=== PATIENT | male | born 1980 | race Native Hawaiian/Other Pacific Islander ===

== ENCOUNTER → 2020-01-07 | Outpatient (CLI) | payer BC ==
--- NOTE | 2020-01-07 22:15 | MR ---
EXAMINATION TYPE: MR brain wo con DATE OF EXAM: 01/07/2020 COMPARISON: NONE HISTORY: MARILY EXT WEAKNESS AND NUMBNESS, HX OF CHIARI TECHNIQUE: Multiplanar, multisequence imaging of the brain and brainstem is performed without IV cont rast. FINDINGS: Diffusion weighted images demonstrate no evidence of a recent infarct or other diffusion abnormality. There is no extraaxial fluid collection or significant white matter signal abnormality. The ventricu lar system and cisternal spaces are normal in size and appearance. The brain volume is age appropria te. Midline structures demonstrate normal morphology. The craniocervical junction appears within normal limits. Normal vascular flow voids are present. A few tiny mucous retention cysts and/or polyps in th e inferior aspect bilateral maxillary sinuses. Remainder of visualized sinuses are clear. Some artifa ct degradation at level of right globe. IMPRESSION: No recent infarct or significant white matter changes. No greater than 5 mm low-lying cer ebellar tonsils or Chiari type I malformation.
== END | disposition home or self-care (01) ==
LOC: RADMRIMAIN 19:10
PROVIDERS: ATTEND Nurse Practitioner Family
DX: G93.5 Compression of brain (principal)
CPT/HCPCS: 70551

== ENCOUNTER 2022-08-23 12:06 | Day surgery (SDC) | payer BC ==
[~2022-08-23 12:06] MED LIST: LACTATED RINGERS 1,000 ML IV SCH; LIDOCAINE 1% (10MG/ML) FOR IV START INTRADERMA PRN
[2022-08-23 12:56] VITALS: TEMP 97
[2022-08-23] MEDS ORDERED: LIDOCAINE 2% INJ 20 MG/ML (2 ML VIAL) ONE (13:39)
[2022-08-23] MEDS ORDERED: PROPOFOL 10 MG/ML 20 ML VIAL IV ONE (13:39)
[2022-08-23] MEDS ORDERED: fentaNYL (PF) 50 MCG/ML 2 ML AMP ONE (13:39)
[2022-08-23] MEDS ORDERED: MIDAZOLAM 2 MG/2 ML VIAL ONE (13:39)
--- NOTE | 2022-08-23 13:51 | P.GSHP ---
History of Present Illness H&P Date: 08/23/22 Chief Complaint: GERD Is a 42-year-old male with history of GERD. Patient presents today for EGD. Past Medical History Additional Past Medical History / Comment(s): Arnold-Chiari malformation; nephrolithiasis History of Any Multi-Drug Resistant Organisms: None Reported Past Surgical History: Cholecystectomy Past Psychological History: No Psychological Hx Reported Past Alcohol Use History: None Reported Past Drug Use History: None Reported - Past Family History Father Family Medical History: Cancer Additional Family Medical History / Comment(s): kidney cancer, emphysema Mother Family Medical History: Hypertension Additional Family Medical History / Comment(s): kidney issues, gallbladder issues Medications and Allergies Home Medications Medication Instructions Recorded Confirmed Type Acetaminophen Tab [Tylenol] 1,000 mg PO Q8H PRN 03/09/16 03/09/16 History Albuterol Sulfate [Proventil Hfa] 2 puff INHALATION Q6HR PRN #1 03/11/16 Rx inhaler Esomeprazole Magnesium [NexIUM] 40 mg PO DAILY 08/23/22 08/23/22 History Fluticasone Nasal [place] [Flonase 2 puff EA NOSTRIL DAILY 08/23/22 08/23/22 History Nasal [place]] buPROPion HCL [Wellbutrin SR] 200 mg PO DAILY 08/23/22 08/23/22 History Allergies Allergy/AdvReac Type Severity Reaction Status Date / Time No Known Allergies Allergy Verified 08/23/22 12:50 Surgical - Exam Vital Signs Temp Pulse Resp BP Pulse Ox 97.0 F L 85 18 134/96 94 L 08/23/22 12:55 08/23/22 12:55 08/23/22 12:55 08/23/22 12:55 08/23/22 12:55 - General well developed, well nourished, no distress - Eyes PERRL - ENT normal pinna - Neck no masses - Respiratory normal expansion - Cardiovascular Rhythm: regular - Abdomen Abdomen: soft, non tender Assessment and Plan Assessment: GERD, we'll perform EGD.
--- NOTE | 2022-08-23 13:53 | P.OP ---
Date of Procedure: 08/23/22 Preoperative Diagnosis: GERD Postoperative Diagnosis: Antral gastritis Hiatal hernia Esophagitis Procedure(s) Performed: EGD Anesthesia: MAC Surgeon: Eric Donato Pathology: other (Antrum, esophagus) Condition: stable Disposition: PACU Description of Procedure: Patient's placed on the endoscopy table in the lateral position. He received IV sedation. The gastroscope placed oropharynx passed in the esophagus into the stomach. Scope was then placed through the pylorus. The first and second porti on of duodenum appeared normal. Scope was then brought back the antrum this was mildly inflamed. A biopsies performed. Scope was unretroflexed the patient had a moderate size sliding hiatal hernia. The GE junction was at 38 cm. The distal esophagus appeared inflamed. A biopsies performed. The proximal esophagus appeared normal. Scope withdrawn for patient.
[2022-08-23 14:03] VITALS: PULSE 93
[2022-08-23 14:24] VITALS: BP 111/75; RESP 18
== END 2022-08-23 14:49 ==
LOC: ORWHC2ENDO 12:06
PROVIDERS: ATTEND Surgery
DX: K29.50 Unspecified chronic gastritis without bleeding (principal); K21.00 Gastro-esophageal reflux disease with esophagitis, without bleeding; K44.9 Diaphragmatic hernia without obstruction or gangrene; Z87.442 Personal history of urinary calculi; Z80.51 Family history of malignant neoplasm of kidney; Z82.49 Family history of ischemic heart disease and other diseases of the circulatory system; Z79.899 Other long term (current) drug therapy
CPT/HCPCS: 88305; 43239; J2250; J3010; J2704; J2001

== ENCOUNTER → 2022-09-02 | Outpatient (CLI) | payer BC ==
[2022-09-02 23:16] LABS: HCT 48.7 % (39.6-50.0); HGB 15.8 g/dL (13.0-17.0); MCH 30.3 pg (27.0-32.0); MCHC 32.4 g/dL (32.0-37.0); MCV 93.3 fL (80.0-97.0); Mean Platelet Volume 9.6 fL (9.5-12.2); NRBC Per 100 WBC 0 /100 WBCS (0.0-0.0); Platelet Count 345 X 10*3/uL (140-440); RBC 5.22 X 10*6/uL (4.40-5.60)
[2022-09-03 01:54] LABS: Basophils # (A) 0.11 X 10*3/uL (0.00-0.10); Basophils % (A) 0.7 %; Eosinophils # (A) 0.31 X 10*3/uL (0.04-0.35); Eosinophils % (A) 1.9 %; Immature Grans, Automated 0.8 %; Lymphocytes # (A) 3.18 X 10*3/uL (0.90-5.00); Lymphocytes % (A) 19.5 %; Monocytes # (A) 1.56 X 10*3/uL (0.20-1.00); Monocytes % (A) 9.6 %; Neutrophils # (A) 11.01 X 10*3/uL (1.80-7.70); Neutrophils % (A) 67.5 %
[2022-09-03 01:55] LABS: RBC Morphology NORMAL
== END | disposition home or self-care (01) ==
LOC: LABPAT 14:35
PROVIDERS: ATTEND Surgery
DX: Z01.812 Encounter for preprocedural laboratory examination (principal); K21.00 Gastro-esophageal reflux disease with esophagitis, without bleeding
CPT/HCPCS: 85025

== ENCOUNTER 2022-09-17 07:30 | Inpatient (IN) | payer BC ==
[2022-09-22] MEDS ORDERED: HEPARIN SODIUM,PORCINE/PF 5,000 UNIT/0.5 ML SYRINGE SQ PRN (05:00)
[2022-09-22] MEDS ORDERED: ACETAMINOPHEN TAB 500 MG TAB PO PRN (05:00)
[2022-09-22] MEDS ORDERED: LIDOCAINE 1% (10MG/ML) FOR IV START INTRADERMA PRN (08:09)
[2022-09-22] MEDS ORDERED: DEXAMETHASONE SOD PHOSPHATE 4 MG/ML 1 ML VIAL IV ONE (08:09)
[2022-09-22] MEDS ORDERED: ONDANSETRON 4 MG/2 ML VIAL IVP ONE (08:09)
[2022-09-22] MEDS ORDERED: MIDAZOLAM 2 MG/2 ML VIAL IV PRN (08:09)
[2022-09-22] MEDS ORDERED: LACTATED RINGERS 1,000 ML IV ONE (10:00)
[2022-09-22] MEDS ORDERED: HEPARIN SODIUM,PORCINE 5,000 UNIT/ML 1 ML VIAL SQ ONE (10:23)
[2022-09-22] MEDS ORDERED: MIDAZOLAM 2 MG/2 ML VIAL IVP ONE (10:29)
--- NOTE | 2022-09-22 10:53 | P.GSHP ---
History of Present Illness H&P Date: 09/22/22 Chief Complaint: GERD Is a 42-year-old male with history of GERD. MThe patient has had long-standing problems with reflux esophagitis. The patient underwent recent EGD is found have evidence of esophagitis. Patient has been well informed on the procedure of laparoscopic Tricia fundoplication. The patient is aware the risk of the conversion to the open procedure, risk of injury to the stomach, liver and spleen. The patient is also a risk of recurrent GERD and dysphagia symptoms. The patient understands there is a postoperative diet of full liquids for 2 weeks after surgery. Past Medical History Past Medical History: COPD, GERD/Reflux Additional Past Medical History / Comment(s): Arnold-Chiari malformation; nephrolithiasis, DDD with back pain., eczema left thigh., hiatal hernia, pt states wbc's always elevated. History of Any Multi-Drug Resistant Organisms: None Reported Past Surgical History: Cholecystectomy Additional Past Surgical History / Comment(s): surgery as for " no soft spot"., egd Past Anesthesia/Blood Transfusion Reactions: Previous Problems w/ Anesthesia, Motion Sickness Additional Past Anesthesia/Blood Transfusion Reaction / Comment(s): difficulty waking up after colonoscopy. Past Psychological History: No Psychological Hx Reported Smoking Status: Current every day smoker Past Alcohol Use History: None Reported Additional Past Alcohol Use History / Comment(s): smokes 1 ppd, started smoking 18 yrs old Past Drug Use History: None Reported - Past Family History Father Family Medical History: Cancer Additional Family Medical History / Comment(s): kidney cancer, emphysema Mother Family Medical History: Hypertension Additional Family Medical History / Comment(s): kidney issues, gallbladder issues Medications and Allergies Home Medications Medication Instructions Recorded Confirmed Type Esomeprazole Magnesium [NexIUM] 40 mg PO DAILY 08/23/22 09/22/22 History Fluticasone Nasal [place] [Flonase 2 puff EA NOSTRIL DAILY 08/23/22 09/22/22 History Nasal [place]] buPROPion HCL [Wellbutrin SR] 200 mg PO DAILY 08/23/22 09/22/22 History Doxylamine Succinate [Unisom] 25 mg PO HS PRN 09/20/22 09/22/22 History Voltaren Gel 1 applicate TOPICAL DIRECTED PRN 09/20/22 09/22/22 History Zyrtec 1 dose PO DAILY 09/20/22 09/22/22 History tiZANidine HCL [Zanaflex] 4 mg PO TID PRN 09/20/22 09/22/22 History Allergies Allergy/AdvReac Type Severity Reaction Status Date / Time trazodone AdvReac Unknown nausea, Verified 09/22/22 09:52 felt like he was drunk Surgical - Exam Vital Signs Temp Pulse Resp BP Pulse Ox 97.7 F 76 16 125/86 98 09/22/22 10:00 09/22/22 10:00 09/22/22 10:00 09/22/22 10:00 09/22/22 10:00 - General well developed, well nourished, no distress - Eyes PERRL - ENT normal pinna - Neck no masses - Respiratory normal expansion - Cardiovascular Rhythm: regular - Abdomen Abdomen: soft, non tender Assessment and Plan Assessment: GERD. We'll perform laparoscopic Tricia fundal plication.
[2022-09-22] MEDS ORDERED: MIDAZOLAM 2 MG/2 ML VIAL ONE (11:11)
[2022-09-22] MEDS ORDERED: LIDOCAINE 4% LTA KIT (4 ML) TOPICAL ONE (11:11)
[2022-09-22] MEDS ORDERED: NEOSTIGMINE 1 MG/ML 10 ML VIAL ONE (11:11)
[2022-09-22] MEDS ORDERED: PHENYLEPHRINE-0.9% NACL SYG 1,000 MCG/10 ML SYRINGE ONE (11:11)
[2022-09-22] MEDS ORDERED: KETOROLAC 15 MG/ML 1 ML VIAL ONE (11:11)
[2022-09-22] MEDS ORDERED: PROPOFOL 10 MG/ML 20 ML VIAL IV ONE (11:11)
[2022-09-22] MEDS ORDERED: GLYCOPYRROLATE 0.2 MG/ML 2 ML VIAL ONE (11:11)
[2022-09-22] MEDS ORDERED: SUCCINYLCHOLINE CHLORIDE 200 MG/10 ML VIAL IV ONE (11:11)
[2022-09-22] MEDS ORDERED: LIDOCAINE 2% INJ 20 MG/ML (2 ML VIAL) ONE (11:11)
[2022-09-22] MEDS ORDERED: ROCURONIUM 10 MG/ML (5 ML VIAL) IV ONE (11:11)
[2022-09-22] MEDS ORDERED: fentaNYL (PF) 50 MCG/ML 2 ML AMP ONE (11:11)
[2022-09-22] MEDS ORDERED: BUPIVACAIN-EPI 0.25%-1:200,000 30 ML VIAL SQ ONE (11:33)
[2022-09-22] MEDS ORDERED: ONDANSETRON 4 MG/2 ML VIAL IVP PRN (11:53)
[2022-09-22] MEDS: HYDROmorphone 0.5 MG/0.5 ML SYRINGE IVP PRN ×2 (13:00→13:10)
[2022-09-22] MEDS: LACTATED RINGERS 1,000 ML IV SCH ×2 (13:12→16:00)
[2022-09-22] MEDS ORDERED: hydrALAZINE HCL 20 MG/ML 1 ML VIAL IVP ONE (13:49)
[2022-09-22] MEDS ORDERED: LABETALOL 5 MG/ML VIAL MDV IVP ONE (14:05)
[2022-09-22 15:43] VITALS: BMI 28.0
--- NOTE | 2022-09-22 15:53 | P.OP ---
Date of Procedure: 09/22/22 Preoperative Diagnosis: GERD Postoperative Diagnosis: GERD Procedure(s) Performed: Laparoscopic Rticia fundoplication Anesthesia: JESSICA Surgeon: Eric Donato Estimated Blood Loss (ml): 5 Pathology: none sent Condition: stable Disposition: PACU Description of Procedure: HarThe patient was placed on the operating table in the supine position. The patient received general anesthesia. And was placed in dorsal lithotomy position. The patient was prepped and draped in the usual sterile fashion. The skin incision sites were anesthetized with 1% local Xylocaine. The skin was incised in the left periumbilical area and then using a blade less 5 mm trocar under direct visualization panel cavity was entered. After adequate insufflation the laparoscope was then placed into the peritoneal cavity. Next a 5 mm trochars placed in the right epigastric position. Another 5 millimeter trocar the right lateral position. Another 5 millimeter trocar in the left lateral position a 5 mm trocar is placed in the left epigastric position. And then the initial 5 mm trocar was exchanged for a 10 mm trocar. The left lateral lobe liver was retracted. The hernia was seen. The crural defect was then dissected using the Harmonic scissors device. A 360 crural dissection was performed the esophagus stomach was reduced back into the peritoneal Cavity. The crural defect was then closed using 2-0 Ethibond suture. Next the fundus of the stomach was mobilized using the [place]imble scissors device. and then a 58- [place] bougie dilator was placed oropharynx passed into the esophagus and stomach the fundal plication wrap was then performed by grasping the fundus post eriorly and bringing it around the esophagus and stomach fundoplication was then performed using 2-0 Ethibond suture. Care was taken that the fundal location rested over top of the intra-abdominal esophagus. There was no injury seen to the stomach or esophagus. The dilator was then withdrawn. The abdomen was irrigated there is no bleeding seen. The trochars were then withdrawn and then skin incision sites were closed using 3-0 Monocryl suture Steri-Strips are applied. Patient thought procedure well and sent to recovery room in stable condition.
[2022-09-22] MEDS: D5-0.45% NACL WITH KCL 20MEQ/L 1,000 ML IV SCH (16:30)
[2022-09-22] MEDS: HYDROmorphone 1 MG/ML 1 ML SYRINGE IVP PRN (18:21)
[2022-09-23] MEDS: HYDROmorphone 1 MG/ML 1 ML SYRINGE IVP PRN ×3 (00:21→10:56)
[2022-09-23] MEDS: D5-0.45% NACL WITH KCL 20MEQ/L 1,000 ML IV SCH ×3 (02:01→11:00)
[2022-09-23] MEDS ORDERED: HYDROcodone/APAP 5-325MG 1 EACH TAB PO PRN (08:01)
[2022-09-23] MEDS ORDERED: ENOXAPARIN 40 MG/0.4 ML SYRINGE SQ SCH (09:00)
[2022-09-23] MEDS ORDERED: NON FORMULARY DRUG (Doxylamine Succinate [Unisom] 25 MG Tablet) PO PRN (12:53)
[2022-09-23] MEDS ORDERED: tiZANidine 4 MG TAB PO PRN (12:53)
[2022-09-23] MEDS ORDERED: DICLOFENAC SODIUM GEL 100 GM TUBE TOPICAL PRN (12:53)
[2022-09-23] MEDS ORDERED: FLUTICASONE 50MCG/SPRAY NASAL 16GM EA NOSTRIL SCH (13:00)
[2022-09-23] MEDS ORDERED: buPROPion SR 100 MG TABLET.ER PO SCH (13:00)
[2022-09-23 13:19] LABS: Basophils # (A) 0.1 k/uL (0-0.2); Basophils % (A) 0 %; Eosinophils # (A) 0.1 k/uL (0-0.7); Eosinophils % (A) 1 %; HCT 47.5 % (39.0-53.0); Lymphocytes # (A) 3.4 k/uL (1.0-4.8); Lymphocytes % (A) 16 %; MCH 31.8 pg (25.0-35.0); MCHC 33.6 g/dL (31.0-37.0); MCV 94.5 fL (80.0-100.0); Monocytes # (A) 1.3 k/uL (0-1.0); Monocytes % (A) 6 %; Neutrophils % (A) 76 %; Platelet Count 318 k/uL (150-450); RBC 5.03 m/uL (4.30-5.90); RDW 12.8 % (11.5-15.5); WBC 21.1 k/uL (3.8-10.6)
[2022-09-23] MEDS ORDERED: SIMETHICONE 40 MG/0.6 ML DROPS 2,000 MG/30 ML BOTTLE PO SCH (13:30)
[2022-09-23 13:40] LABS: African American GFR (CKD) >90 (>60 ml/min/1.73 sqM); Anion Gap 10 mmol/L; Blood Urea Nitrogen 9 mg/dL (9-20); Calcium 8.8 mg/dL (8.4-10.2); Carbon Dioxide 24 mmol/L (22-30); Chloride 104 mmol/L (98-107); Glucose 130 mg/dL (74-99); Non-African American GFR(CKD) >90 (>60 ml/min/1.73 sqM); Potassium 4.2 mmol/L (3.5-5.1); Sodium 138 mmol/L (137-145)
--- NOTE | 2022-09-23 13:47 | P.DS ---
Providers Date of admission: 09/22/22 09:23 Expected date of discharge: 09/23/22 Attending physician: Eric Donato Consults: 09/22/22 11:53 Consult Physician Routine Consulting Provider: Rui Gutiérrez Consult Reason/Comments: Medical management Do you want consulting provider notified?: Yes Primary care physician: Stated None Hospital Course: Discharge diagnosis 1. Laparoscopic Tricia fundoplication 2. Leukocytosis likely reactive due to steroids Hospital course This is a 42-year-old male with a known history of GERD. He is status post laparoscopic Tricia fundoplication. Patient's pain is controlled. He is tolerating diet. He has been up and ambulating he is afebrile. He is stable for discharge. Please refer to chart for any further details. Recommend repeating CBC in 3 days regarding leukocytosis. Physician Baling Machine Tender note has been reviewed by physician. Signing provider agrees with the documented findings, assessment, and plan of care. Patient Condition at Discharge: Stable Plan - Discharge Summary Discharge Rx Participant: Yes New Discharge Prescriptions: New Simethicone 40 mg/0.6 ml Drops [Mylicon Drops] 80 mg PO PCHS ml HYDROcodone/APAP 5-325MG [[place] 5-325] 1 tab PO Q6HR PRN 3 Days #12 tab PRN Reason: Pain Continue buPROPion HCL [Wellbutrin SR] 200 mg PO DAILY Fluticasone Nasal [place] [Flonase Nasal [place]] 2 puff EA NOSTRIL DAILY tiZANidine HCL [Zanaflex] 4 mg PO TID PRN PRN Reason: Muscle Spasm Zyrtec 1 dose PO DAILY Esomeprazole Magnesium [NexIUM] 40 mg PO DAILY Voltaren Gel 1 applicate TOPICAL DIRECTED PRN PRN Reason: Pain Doxylamine Succinate [Unisom] 25 mg PO HS PRN PRN Reason: Insomnia Discharge Medication List Esomeprazole Magnesium [NexIUM] 40 mg PO DAILY 08/23/22 [History] Fluticasone Nasal [place] [Flonase Nasal [place]] 2 puff EA NOSTRIL DAILY 08/23/22 [History] buPROPion HCL [Wellbutrin SR] 200 mg PO DAILY 08/23/22 [History] Doxylamine Succinate [Unisom] 25 mg PO HS PRN 09/20/22 [History] Voltaren Gel 1 applicate TOPICAL DIRECTED PRN 09/20/22 [History] Zyrtec 1 dose PO DAILY 09/20/22 [History] tiZANidine HCL [Zanaflex] 4 mg PO TID PRN 09/20/22 [History] HYDROcodone/APAP 5-325MG [[place] 5-325] 1 tab PO Q6HR PRN 3 Days #12 tab 09/23/22 [Rx] Simethicone 40 mg/0.6 ml Drops [Mylicon Drops] 80 mg PO PCHS ml 09/23/22 [Rx] Follow up Appointment(s)/Referral(s): Eric Donato MD [STAFF PHYSICIAN] - 1 Week Activity/Diet/Wound Care/Special Instructions: No driving while taking [place] No lifting over 10 pounds Shower daily. No soaking or tub baths for 2 weeks Very light activity until you are reevaluated at your follow up appointment with your surgeon No straws or carbonated beverages Continue a soft diet until seen by surgeon Repeat CBC in 3 days with PCP Discharge Disposition: HOME SELF-CARE
[2022-09-23 14:34] VITALS: BP 143/95; PULSE 101; RESP 19; TEMP 98
--- NOTE | 2022-09-23 14:47 | P.CONS ---
History of Present Illness - Reason for Consult Consult date: 09/23/22 medical management postop Tricia fundoplication - History of Present Illness This is a 42-year-old male who was recently admitted under Gen. surgery services for Tricia fundoplication postop day #1. Patient reports he follows with Dr. Mccurdy outpatient although has mostly been only following with surgery over the last few months. Patient with a past medical history of gastroesophageal reflux disease, COPD, most recent EGD showing esophagitis. On exam this morning patient having some increasing abdominal pain and belching and denies passing gas or having bowel movements. Patient reports he is tolerating clears although not much of an appetite. Home medications have been reviewed and resumed as appropriate. Patient encouraged to increase activity as tolerated and have ordered incentive spirometer and encouraged and instructed the patient to continue using at least 10 times every hour while awake. Presurgical clearance showed an elevated WBC of 16 and after surgery showing 21 although patient is afebrile denies shortness of breath denies dysuria and does not appear to be clinically showing any signs of infection. After reviewing past medical records patient does have a history of chronic white blood count elevation. BMP reviewed and within normal limits. Review Of Systems: Constitutional: No fever, no chills, no night sweats. No weight change. No weakness, fatigue or lethargy. No daytime sleepiness. EENT: No headache. No blurred vision or double vision, no loss of vision. No loss of Hearing, no ringing in the ears, no dizziness. No nasal drainage or congestion. No epistaxis. No sore throat. Lungs: No shortness of breath, cough, no sputum production. No wheezing. Cardiovascular: No chest pain, no lower extremity edema. No palpitations. No paroxysmal nocturnal dyspnea. No orthopnea. No lightheadedness or dizziness. No syncopal episodes. Abdominal: Reports abdominal pain. Reports occasional nausea, no vomiting. No diarrhea. No constipation. No bloody or tarry stools.. No loss of appetite. Reports no bowel movement or passing gas, reports belching Genitourinary: No dysuria, increased frequency, urgency. No urinary retention. Musculoskeletal: No myalgias. No muscle weakness, no gait dysfunction, no frequent falls. No back pain. No neck pain. Integumentary: No wounds, no lesions. No rash or pruritus. No unusual bruising. No change in hair or nails. Neurologic: No aphasia. No facial droop. No change in mentation. No head injury. No headache. No paralysis. No paresthesia. Psychiatric: No depression. No anxiety. No mood swings. Endocrine: No abnormal blood sugars. No weight change. No excessive sweating or thirst. No cold intolerance. PHYSICAL EXAMINATION: GENERAL: The patient is alert and oriented x4, Well developed, well nourished. HEENT: Pupils are round and equally reacting to light. EOMI. no scleral icterus. No conjunctival pallor. Normocephalic, atraumatic. No pharyngeal erythema. No thyromegaly. CARDIOVASCULAR: S1 and S2 muffled PULMONARY: diminished breath sounds bilaterally with no wheezing or rhonchi noted. ABDOMEN: soft. Nontender on exam. obese. non-distended, normoactive bowel sounds. No palpable organomegaly. MUSCULOSKELETAL: No joint swelling or deformity. EXTREMITIES: No cyanosis, clubbing, or pedal edema. NEUROLOGICAL: Gross neurological examination did not reveal any focal deficits. SKIN: No rashes. Assessment: Status post laparoscopic Niesen fundoplication Extensive history of gastroesophageal reflux disease Recent EGD showing esophagitis Leukocytosis, likely reactive due to steroids Continued ongoing nicotine dependence History of COPD, not an exacerbation GI prophylaxis DVT prophylaxis Full code Plan: Recommend to continue with current medications and management per general [facility] services. Patient is post Niesen fundoplication postop day #1. Patient having some postoperative gas pain and having belching with no passing gas or bowel movements. Patient is urinating with no difficulties. Patient is tolerating clear liquids and will continue on this per surgical recommendations with close outpatient follow-up. Patient reports he follows with Dr. Mccurdy outpatient but has mostly been seeing surgery for these complications. All medications were reviewed and resumed and patient encouraged to follow-up with primary care and surgery outpatient. Patient reports he is being discharged later today. Incentive spirometer ordered and patient reports he has one at home and encouraged and instructed the patient to continue using at least 10 times every hour while awake. Recommend follow-up labs in the next few days as patient with chronic leukocytosis and following with his primary care provider to discuss this. We will continue to follow with general surgery during hospitalization. Thank you kindly for this consultation. The impression and plan of care has been dictated by Lisa Kaufman, nurse practitioner as directed. Dr. Marla MD I have performed a history and examination and MDM of this patient, discussed the same with the dictator, and agree with the dictator's assessment and plan as written ,documented as a scribe. Based on total visit time, I have performed more than 50% of the visit. Any additional findings or plans will be noted. Past Medical History Past Medical History: COPD, GERD/Reflux Additional Past Medical History / Comment(s): Arnold-Chiari malformation; nephrolithiasis, DDD with back pain., eczema left thigh., hiatal hernia, pt s tates wbc's always elevated. History of Any Multi-Drug Resistant Organisms: None Reported Past Surgical History: Cholecystectomy Additional Past Surgical History / Comment(s): surgery as for " no soft spot"., egd Past Anesthesia/Blood Transfusion Reactions: Previous Problems w/ Anesthesia, Mo tion Sickness Additional Past Anesthesia/Blood Transfusion Reaction / Comm: difficulty waking up after colonoscopy. Past Psychological History: No Psychological Hx Reported Smoking Status: Current every day smoker Past Alcohol Use History: None Reported Additional Past Alcohol Use History / Comment(s): smokes 1 ppd, started smoking 18 yrs old Past Drug Use History: None Reported - Past Family History Father Family Medical History: Cancer Additional Family Medical History / Comment(s): kidney cancer, emphysema Mother Family Medical History: Hypertension Additional Family Medical History / Comment(s): kidney issues, gallbladder issues Medications and Allergies Home Medications Medication Instructions Recorded Confirmed Type Esomeprazole Magnesium [NexIUM] 40 mg PO DAILY 08/23/22 09/22/22 History Fluticasone Nasal [place] [Flonase 2 puff EA NOSTRIL DAILY 08/23/22 09/22/22 History Nasal [place]] buPROPion HCL [Wellbutrin SR] 200 mg PO DAILY 08/23/22 09/22/22 History Doxylamine Succinate [Unisom] 25 mg PO HS PRN 09/20/22 09/22/22 History Voltaren Gel 1 applicate TOPICAL DIRECTED PRN 09/20/22 09/22/22 History Zyrtec 1 dose PO DAILY 09/20/22 09/22/22 History tiZANidine HCL [Zanaflex] 4 mg PO TID PRN 09/20/22 09/22/22 History HYDROcodone/APAP 5-325MG [[place] 1 tab PO Q6HR PRN 3 Days #12 tab 09/23/22 Rx 5-325] Simethicone 40 mg/0.6 ml Drops 80 mg PO PCHS ml 09/23/22 Rx [Mylicon Drops] Allergies Allergy/AdvReac Type Severity Reaction Status Date / Time trazodone AdvReac Unknown nausea, Verified 09/22/22 09:52 felt like he was drunk Physical Exam Vitals: Vital Signs Temp Pulse Pulse Pulse Resp BP BP 09/23/22 08:00 97.8 F 89 18 142/93 09/23/22 02:00 97.7 F 101 H 17 125/86 09/22/22 20:00 97.8 F 99 17 125/91 09/22/22 15:06 97.8 F 101 H 18 134/95 09/22/22 14:21 90 18 130/99 09/22/22 14:00 97 18 172/108 09/22/22 13:40 89 18 154/119 09/22/22 13:25 103 H 16 156/101 09/22/22 13:10 95 16 156/102 09/22/22 12:55 85 16 163/106 09/22/22 12:40 97 16 165/94 09/22/22 12:25 103 H 16 155/82 09/22/22 12:13 99 16 145/81 09/22/22 10:00 97.7 F 76 16 125/86 Pulse Ox 09/23/22 08:00 91 L 09/23/22 02:00 91 L 09/22/22 20:00 93 L 09/22/22 15:06 94 L 09/22/22 14:21 100 09/22/22 14:00 96 09/22/22 13:40 95 09/22/22 13:25 93 L 09/22/22 13:10 97 09/22/22 12:55 98 09/22/22 12:40 100 09/22/22 12:25 99 09/22/22 12:13 99 09/22/22 10:00 98 Intake and Output 09/22/22 09/23/22 09/23/22 22:59 06:59 14:59 Other: # Voids 2 # Bowel Movements 2 Weight 78.9 kg Results CBC & Chem 7: 09/23/22 12:20 09/23/22 12:20
[2022-09-24] MEDS ORDERED: PANTOPRAZOLE 40 MG TABLET PO SCH (07:30)
[2022-09-24] MEDS ORDERED: LORATADINE 10 MG TAB PO SCH (09:00)
== END 2022-09-23 15:09 | disposition home or self-care (01) | DRG 328 ==
LOC: EDSTATUS 09-22 08:30 → 2ORMAIN 09-22 09:23 → 4SSUR 09-22 14:02
PROVIDERS: ADMIT Surgery; ATTEND Surgery
PROC: 0DV44ZZ Restriction of Esophagogastric Junction, Percutaneous Endoscopic Approach (ICD-10-PCS; principal; 2022-09-22 11:05)
DX: K21.00 Gastro-esophageal reflux disease with esophagitis, without bleeding (principal); D72.829 Elevated white blood cell count, unspecified; F17.210 Nicotine dependence, cigarettes, uncomplicated; J44.9 Chronic obstructive pulmonary disease, unspecified; K21.9 Gastro-esophageal reflux disease without esophagitis; K44.9 Diaphragmatic hernia without obstruction or gangrene; Q07.00 Arnold-Chiari syndrome without spina bifida or hydrocephalus; M54.9 Dorsalgia, unspecified; T38.0X5A Adverse effect of glucocorticoids and synthetic analogues, initial encounter; Z79.899 Other long term (current) drug therapy; Z80.51 Family history of malignant neoplasm of kidney; Z82.49 Family history of ischemic heart disease and other diseases of the circulatory system; Z82.5 Family history of asthma and other chronic lower respiratory diseases; Z87.442 Personal history of urinary calculi; Z88.6 Allergy status to analgesic agent
CPT/HCPCS: 80048; 85025

== ENCOUNTER → 2022-11-22 | Outpatient (CLI) | payer BC ==
[2022-11-22 13:14] VITALS: BP 134/85; PULSE 94; RESP 18; TEMP 98.1
--- NOTE | 2022-11-22 15:24 | P.PAINPG ---
PQRS Measure Charge Sheet Comment: HISTORY OF PRESENT ILLNESS: 42 yr old male w female gastroenterologist at side as a referral from Sylvia Leroy [facility] presents today w severe and chronic LBP x 7 mo secondary to lumbar stenosis, DDD, spondylosis and facet arthropathy without myelopathy for evaluation. Pt states pain level is at 8 /10 in intensity, constant, localized in the lower lumbar spine, burning, dull, throbbing in character w shooting pain towards the BLEs and feet. Pain is provoked by standing for periods of 15 min or more. Pain is alleviated by PT in May 2022 but PT ended treatment w PCP, massage gun use, heat, medications (Aleve, Flexeril, Advil), topicals, repositioning and rest. PMH: COPD, GERD, Arnold-Chiari malformation, MDD PSH: Nephrolithiasis, Lumbar DDD, Hiatal Hernia, Cholecystectomy, Tricia Fundoplication (Sep 2022), EGD, Colonoscopy x3 SH: Daily tobacco use, Rare ETOH use, No illicit drug use FH: Fa- Renal CA, Emphysema. Mo- HTN, Gall bladder issues All: See list Meds: See list REVIEW OF ORGAN SYSTEMS: CONSTITUTIONAL: No fevers or chills. No recent weight loss. NEUROLOGICAL: + numbness and tingling along the distal extremities. No seizure disorders or headaches. MUSCULOSKELETAL: + pain PSYCHIATRIC: Denies current depression or suicidal thoughts. Physical Examinations : Constitutional : Cooperative , not in acute distress . Neurologic : Cranial nerve II to XII intact. No focal neurological deficits. Psychiatric : alert & oriented x 3. Matching mood & appropriate affect. Judgment & insight intact. Musculoskeletal : Cervical Spine Motor strength in the deltoid and biceps: Normal right side. Normal Left side Motor strength biceps and the wrist extensors: Normal right side . Normal left side Motor strength in the triceps muscle: Normal right side. Normal left side Deep tendon reflexes: Normal at the biceps. Normal at Brachioradialis. Normal at triceps Vertebral body tenderness to deep palpation over Cervical facet loading test: positive bilaterally Spurling test: positive bilaterally Neck distraction test: positive bilaterally Jatin sign: positive bilaterally Lumbar spine Motor strength lower extremities ,thigh and legs 5/5 Right side , 5/5 Left side Deep tendon reflexes : Normal Knee Jerk. Normal Ankle Jerk Vertebral body tenderness over L5 Lumbar facet Loading Test: positive Right / positive Left Range of motion of the lumbar spine Flexion 30 degrees, extension 10 degrees Straight Leg Raise test: Left/ Right positive at degree Mariana test: positive right / positive left. Severe tenderness over the Sacroiliac joint on the Right / Left sides Gaenslen test: positive bilaterally Seated flexion test: positive bilaterally. Sacral spine : Severe tenderness over the Sacroiliac joint: right side / left side Range of motion: Flexion of the lumbar spine <60 degrees Range of motion: Extension of the lumbar spine <20 degrees Gaenslen's Test positive Ciaran's Test positive Mariana test: positive right side / left side Thigh Thrust Test Sacral Thrust Test Imaging: MRI without contrast of the lumbar spine from 08/17/22 reviewed Assessment/ Plan : Lumbar stenosis, Lumbar DDD Recommendation of MAXIMILIAN L5-S1. May need a series of injections, up to 3 within a 6 mo period, for optimal pain relief. Risks, benefits of procedure discussed and patient verbalized understanding. Denies aspirin or anti- coagulant use or medical history of diabetes. Protocol for discontinuation/ continuation of medications caty procedure discussed. All questions answered. I have spent greater than 30 minutes on patient care today. Dr Prince was available by phone for the evaluation of this patient. The time was used to review the medical records including relevant urine studies and Prescription history (MAPs), review of the available imaging, evaluation and examination of the patient, coordination of care with the medical staff and if applicable referring physicians, as well as creation of the medical record PQRS Narrative: Smoking Status Current every day smoker Home Medications: Ambulatory Orders Esomeprazole Magnesium [NexIUM] 40 mg PO DAILY 08/23/22 Fluticasone Nasal [place] [Flonase Nasal [place]] 2 puff EA NOSTRIL DAILY 08/23/22 buPROPion HCL [Wellbutrin SR] 200 mg PO DAILY 08/23/22 Doxylamine Succinate [Unisom] 25 mg PO HS PRN 09/20/22 Voltaren Gel 1 applicate TOPICAL DIRECTED PRN 09/20/22 Zyrtec 1 dose PO DAILY 09/20/22 tiZANidine HCL [Zanaflex] 4 mg PO TID PRN 09/20/22 HYDROcodone/APAP 5-325MG [[place] 5-325] 1 tab PO Q6HR PRN 3 Days #12 tab 09/23/22 Simethicone 40 mg/0.6 ml Drops [Mylicon Drops] 80 mg PO PCHS ml 09/23/22 Controlled Substance Measures - Controlled Substance Measures Is patient prescribed a controlled substance at discharge?: No
== END ==
LOC: PNWHC3 11:41
PROVIDERS: ATTEND Specialist
DX: M51.36 Other intervertebral disc degeneration, lumbar region (principal); M48.061 Spinal stenosis, lumbar region without neurogenic claudication; F17.200 Nicotine dependence, unspecified, uncomplicated; Z88.8 Allergy status to other drugs, medicaments and biological substances
CPT/HCPCS: 99211

== ENCOUNTER 2023-02-03 09:25 | Day surgery (SDC) | payer BC ==
[2023-02-02 09:24] VITALS: BMI 27.4
[2023-02-03 09:46] VITALS: RESP 16; TEMP 97.5
[2023-02-03] MEDS ORDERED: methylPREDNISolone ACETATE 80 MG/ML 1 ML VIAL ONE (10:29)
[2023-02-03] MEDS ORDERED: fentaNYL (PF) 50 MCG/ML 2 ML AMP ONE (10:29)
[2023-02-03] MEDS ORDERED: MIDAZOLAM 2 MG/2 ML VIAL ONE (10:29)
[2023-02-03] MEDS ORDERED: IOPAMIDOL M200 10 ML VIAL ONE (10:29)
--- NOTE | 2023-02-03 10:37 | P.PCN ---
Date of Procedure: 02/03/23 Procedure(s) Performed: PREOPERATIVE DIAGNOSIS: 1- Lumbar Degenerative Disc Diseases 2-lumbar spinal stenosis POSTOPERATIVE DIAGNOSIS: Same as preop diagnosis. PROCEDURE 1. Lumbar epidural steroid injection under fluoroscopic guidance at the L5-S1 level. (Fluoroscopy imaging was available in radiology department) 2. Lumbar epidurogram. ANESTHESIA: moderate sedation with intravenous Versed 2 mg ,and fentanyle 100 Mcg Sedation start time : 1031 Sedation end time : 1034 EBL: Minimal PROCEDURE INDICATION: The patient with low back pain and radiculitis symptoms unresponsive to conservative treatment. Fluoroscopy was used to optimize visualization of the needle placement and to maximize safety. PROCEDURE DESCRIPTION / TECHNIQUE: The patient was seen and identified in the preoperative area. Risks, benefits, complications including but not limited to infections ,bleeding ,allergic reaction to the medications ,nerve damage and not complete pain releife , and alternatives were discussed with the patient. The patient agreed to proceed with the procedure and signed the consent. IV was started, and vital signs were stable. Patient was taken to the OR and time out was completed. The patient was placed in the prone position on procedure table and a pillow was placed under the abdomen to reduce lumbar lordosis. The lumbosacral area was prepped and draped in the usual sterile fashion.ere closely monitored during the procedure. Conscious sedation was used during the procedure to decrease patients anxiety. Vital signs was monitered during the entire procedure. Using anterior-posterior fluoroscopy, the L5-S1 interlaminar space was identified and the skin over this site was marked and then infiltrated with 1% lidocaine subcutaneously. Subsequently, a 20-gauge Tuohy epidural needle was inserted and advanced toward the epidural space using the ``Loss of resistance technique and guided by AP and lateral fluoroscopy. The correct needle position in the epidural space was verified with the injection of 2 mL of the water soluble contrast dye Isovue 200 contrast and observing an excellent epidurogram with the epidural spread of the dye, after negative aspiration for blood and CSF and in the absence of paresthesias. Again after negative aspiration, a 6 ml mixture containing 80 mg of Depo-medrol ( Preservetive Free ), and 2 ml of preservative free Normal Saline, and 2 ml of preservative free lidocaine 1% solution was injected and a washout of epidurogram was seen. Needle was withdrawn intact, skin was cleansed, and bandages were applied. COMPLICATIONS: None DISPOSITION / PLANS: The patient was placed in a supine position and transferred to the recovery area in a stable condition for observation. There was no evidence of lower extremity motor or sensory deficit after the procedure. Laith roberts was discharged from the recovery room after meeting discharge criteria. Home discharge instructions were given to the patient by the staff. The patient was reexamined prior to discharge. The patient will schedule a follow up in the clinic in 2-4 weeks.
[2023-02-03] MEDS ORDERED: IV FLUID CONTINUATION 600 ML IV ONE (10:39)
--- NOTE | 2023-02-03 10:47 | FL ---
Intraoperative/procedural fluoroscopic services were provided. Total fluoroscopy time is 1.5 seconds with a total of 1 submitted images to PACS. Please see the operative/procedural note for further deta ils. DAP: [phone]
[2023-02-03 11:00] VITALS: BP 133/92; PULSE 71
== END 2023-02-03 11:16 | disposition home or self-care (01) ==
LOC: ORPAIN 09:25
PROVIDERS: ATTEND Specialist
DX: M51.16 Intervertebral disc disorders with radiculopathy, lumbar region (principal); M48.061 Spinal stenosis, lumbar region without neurogenic claudication; Z88.8 Allergy status to other drugs, medicaments and biological substances
CPT/HCPCS: 62323; J2250; J1040; J3010; Q9966

== ENCOUNTER → 2023-02-24 | Outpatient (CLI) | payer BC ==
[2023-02-24 10:52] VITALS: BP 152/95; PULSE 79; RESP 18; TEMP 97.5
--- NOTE | 2023-02-24 14:30 | P.PAINPG ---
PQRS Measure Charge Sheet Comment: A 43 yr old male w significant other at side with a history of severe and chronic LBP secondary to lumbar DDD and spondylosis with facet arthropathy without myelopathy presents today for evaluation s/p MAXIMILIAN L5-S1. Pt states he experienced 0 % pain relief x 3 wks s/p procedure. Pain level is provoked at 8/10 in intensity, constant, localized in the L lumbar spine, stabbing in character w shooting towards the LLE. Pain is provoked by walking/ standing in 1 spot for periods of 20 min or more. Pain is alleviated with Pt semi weekly x 4 wks in Sep 2022, heat, meds, topical, sitting, repositioning and rest. Interventional pain procedures completed include MAXIMILIAN L5-S1 x2 Patient is currently on Zanaflex Patient denies any side effects of the medication(s), denies excessive drowsiness or sleepiness, denies suicidal ideation and reports that the current pain medication is helping to control the pain and improve activities of daily living. Patient denies any motor or sensory deficits. Patient denies any fever or night sweats, denies any change in the bowel movements or urination. Physical Examination: -Constitutional: Cooperative. Not in acute distress . - Neurologic: Cranial nerve II to XII intact. No focal neurological deficits. - Psychatric: Alert & oriented x 3. Matching mood & appropriate affect. Judgment and insight intact. - Musculoskeletal: Cervical spine: Muscle bulk/ tone/ strength in the bilateral upper extremities normal Vertebral body tenderness to palpation over Spurling test positive Distraction test positive Facet loading test positive TTP Thoracic spine Muscle bulk / tone/ strength in the bilateral paraspinal muscles normal Vertebral body tender to palpation over Facet loading test positive TTP Lumbar spine: Motor bulk/ tone/ strength lower extremities , thigh and legs : 5/5 Deep tendon reflexes : Normal Knee Jerk. Normal Ankle Jerk . Vertebral body tenderness to palpation over Lumbar Facet Loading Test positive TTP over BL L4-L5, L5-S1 facets, L>R Straight Leg Raise: positive at 30 degrees right side/ left side Gaenslen's Test positive Sacral spine : Severe tenderness over the Sacroiliac joint: right side / left side Range of motion: Flexion of the lumbar spine <60 degrees Range of motion: Extension of the lumbar spine <20 degrees Gaenslen's Test positive right side / left side Mariana test: positive right side / left side Thigh Thrust Test positive right side / left side Sacral Thrust Test positive right side / left side Assessment and plan: Chronic LBP secondary to lumbar DDD, spondylosis with facet arthropathy without myelopathy Recommendation of BL facet blocks of hte medial branches L4-L5, L5-S1 #1. May need a series of injections, up until RFA, for optimal pain relief. Risks, benefits of procedure discussed and pt verbalized understanding. Admits to anticoagulant use or medical history of diabetes. Protocol for discontinuation/ continuation of medications caty procedure discussed. All questions answered. I have spent less than 30 minutes on patient care today. Dr Prince was available by phone for the evaluation of this patient. The time was used to review the medical records including relevant urine studies and Prescription history (MAPs), review of the available imaging, evaluation and examination of the patient, coordination of care with the medical staff and if applicable referring physicians, as well as creation of the medical record PQRS Narrative: Smoking Status Current every day smoker Hx Alcohol Use (MH) No Home Medications: Ambulatory Orders Fluticasone Nasal [place] [Flonase Nasal [place]] 2 puff EA NOSTRIL DAILY 08/23/22 buPROPion HCL [Wellbutrin SR] 300 mg PO DAILY 08/23/22 Doxylamine Succinate [Unisom] 25 mg PO HS PRN 09/20/22 Voltaren Gel 1 applicate TOPICAL DIRECTED PRN 09/20/22 Zyrtec 1 dose PO DAILY 09/20/22 tiZANidine HCL [Zanaflex] 4 mg PO TID PRN 09/20/22 Simethicone 40 mg/0.6 ml Drops [Mylicon Drops] 80 mg PO PCHS ml 09/23/22 Controlled Substance Measures - Controlled Substance Measures Is patient prescribed a controlled substance at discharge?: No
== END ==
LOC: PNWHC3 10:22
PROVIDERS: ATTEND Specialist
DX: M51.36 Other intervertebral disc degeneration, lumbar region (principal); M47.817 Spondylosis without myelopathy or radiculopathy, lumbosacral region; G89.29 Other chronic pain; F17.200 Nicotine dependence, unspecified, uncomplicated; Z88.5 Allergy status to narcotic agent
CPT/HCPCS: 99211

== ENCOUNTER 2023-04-01 09:17 | Day surgery (SDC) | payer BC ==
[2023-03-30 15:58] VITALS: BMI 26.6
[2023-04-01 10:01] VITALS: TEMP 97.3
[2023-04-01] MEDS ORDERED: ROPIVACAINE 5 MG/ML 20 ML AMPULE ONE (10:26)
[2023-04-01] MEDS ORDERED: methylPREDNISolone ACETATE 40 MG/ML 1 ML VIAL ONE (10:26)
[2023-04-01] MEDS ORDERED: MIDAZOLAM 2 MG/2 ML VIAL ONE (10:26)
[2023-04-01] MEDS ORDERED: fentaNYL (PF) 50 MCG/ML 2 ML AMP ONE (10:26)
--- NOTE | 2023-04-01 10:42 | P.PCN ---
Date of Procedure: 04/01/23 Procedure(s) Performed: PREOPERATIVE DIAGNOSIS : 1- Lumbar spondylosis with Facet Arthropathy without myelopathy . 2- Lumber degenerative disc disease.3-lumbar spinal stenosis POSTOPERATIVE DIAGNOSIS: 1- Lumbar spondylosis with Facet Arthropathy without myelopathy . 2- Lumber degenerative disc disease. 3-lumbar spinal stenosis PROCEDURE: Diagnostic bilateral L3 , L4 , and L5 medial branch block under fluoroscopy guidance(fluoroscopy images available in the radiology Department ) ( To target the facet joint between Bilateral L4-5 , and L5-S1 )# 1St ANESTHESIA:, Monitored anesthesia care as per anesthesia department. EBL: Minimal COMPLICATION: None PROCEDURE INDICATION: Chronic low back pain secondary to Facet arthropathy unresponsive to conservative treatment. PROCEDURE DESCRIPTION: the patient was seen and identified in the preop holding area , risks and benefits and possible complications of the procedure and alternative were discussed with the patient, and the patient agreed to proceed with the procedure and signed the consent and vital signs monitored during the procedure and fluoroscopy was used to maximize the benefit and accuracy of the needle placement, and sedation was given to decrease patient anxiety, patient was taken to the procedure room and placed in prone position vital signs monitored in the back prepped with chlorhexidine X3 then under strict sterile technique using a right oblique fluoroscopy ,the junction of the transverse process and the superior articulating process of the right L3 , L4 , and L5 vertebra which corresponding to the fluoroscopy image of the eye of the Rafy dog on the block side for the medial branches and subsequently , after local infiltration of skin and subcu tissuies with Ropivacaine 0.5 % , one mL at each level ,then 22-gauge Quincke-type needles , 3 needle was used , each one of them placed at the junction of the base of the transverse process and the superior articular process at the appropriate level, and the needle was advanced until the periosteum contacted, needle placement confirmed with AP oblique and lateral view and after appropriate needle placement confirmed, and after nega tive aspiration for heme and CSF and there was no paresthesia 1-1/2 mL of Ropivacaine 0.5% mixed with 20 mg Depo-Medrol , then half mL injected at each level after negative aspiration the needle subsequently removed and the same procedure repeated for the left side at left side at L3 , L4 and L5 levels. At the end of the procedure and the needles removed and a bandage applied after the skin was cleaned the cleaning solution patient taken to recovery room in stable condition and monitors in the recovery room for 20-30 minutes and discharged home in stable condition after discharge criteria met and patient will follow up with the pain clinic in 2-4 weeks
[2023-04-01] MEDS ORDERED: IV FLUID CONTINUATION 1,000 ML IV ONE (10:45)
[2023-04-01 11:01] VITALS: BP 118/85; PULSE 84; RESP 16
--- NOTE | 2023-04-01 12:56 | FL ---
EXAMINATION TYPE: FL guided pain mgmt statistic DATE OF EXAM: 04/01/2023 FLUOROSCOPY Fluoroscopy time of 20 seconds was used during bilateral lumbar facet blocks. 4 image/s document/s t he procedure. DOSE AREA PRODUCT (DAP) UGY*M,MGY*CM: 0.069
== END 2023-04-01 11:25 | disposition home or self-care (01) ==
LOC: ORPAIN 09:17
PROVIDERS: ATTEND Specialist
DX: M51.36 Other intervertebral disc degeneration, lumbar region (principal); M47.816 Spondylosis without myelopathy or radiculopathy, lumbar region; M48.061 Spinal stenosis, lumbar region without neurogenic claudication; G89.29 Other chronic pain; J44.9 Chronic obstructive pulmonary disease, unspecified; F17.200 Nicotine dependence, unspecified, uncomplicated; K21.9 Gastro-esophageal reflux disease without esophagitis; F32.A Depression, unspecified; Z79.899 Other long term (current) drug therapy; Z88.8 Allergy status to other drugs, medicaments and biological substances
CPT/HCPCS: 64493; 64494 ×2; J2250; J1030; J3010; J2795

== ENCOUNTER → 2023-04-27 | Outpatient (CLI) | payer BC ==
[2023-04-27 07:55] VITALS: BP 142/88; PULSE 82; RESP 18; TEMP 98
--- NOTE | 2023-04-27 13:27 | P.PAINPG ---
PQRS Measure Charge Sheet Comment: A 43 yr old male with a history of severe and chronic LBP secondary to lumbar DDD and spondylosis with facet arthropathy without myelopathy presents today for evaluation s/p BL MBB L4-L5, L5-S1 #1. Pt states he experienced 60 % pain relief x 4 hrs s/p procedure. Pain level is provoked at 8 /10 in intensity, constant, localized in the lumbar spine, burning in character w shooting towards . Pain is provoked by . Pain is alleviated with PT x 4 wks in Sep 2022, heat, medications, topical, repositioning and rest. Interventional pain procedures completed include BL MBB L3-L5 x1, MAXIMILIAN L5-S1 x2 Patient is currently on Neruontin, Tramadol, Zalaflex, BioFreeze gel Patient denies any side effects of the medication(s), denies excessive drowsiness or sleepiness, denies suicidal ideation and reports that the current pain medication is helping to control the pain and improve activities of daily living. Patient denies any motor or sensory deficits. Patient denies any fever or night sweats, denies any change in the bowel movements or urination. Physical Examination: -Constitutional: Cooperative. Not in acute distress . - Neurologic: Cranial nerve II to XII intact. No focal neurological deficits. - Psychatric: Alert & oriented x 3. Matching mood & appropriate affect. Judgment and insight intact. - Musculoskeletal: Cervical spine: Muscle bulk/ tone/ strength in the bilateral upper extremities normal Vertebral body tenderness to palpation over Spurling test positive Distraction test positive Facet loading test positive TTP Thoracic spine Muscle bulk / tone/ strength in the bilateral paraspinal muscles normal Vertebral body tender to palpation over Facet loading test positive TTP Lumbar spine: Motor bulk/ tone/ strength lower extremities , thigh and legs : 5/5 Deep tendon reflexes : Normal Knee Jerk. Normal Ankle Jerk . Vertebral body tenderness to palpation over Whitaker Test positive Lumbar Facet Loading Test positive Straight Leg Raise: positive at 30 degrees right side/ left side Gaenslen's Test positive Sacral spine : Severe tenderness over the Sacroiliac joint: right side / left side Range of motion: Flexion of the lumbar spine <60 degrees Range of motion: Extension of the lumbar spine <20 degrees Gaenslen's Test positive right side / left side Mariana test: positive right side < left side Thigh Thrust Test positive right side / left side Sacral Thrust Test positive right side < left side Assessment and plan: Chronic LBP secondary to lumbar DDD, spondylosis with facet arthropathy without myelopathy, BL Sacroiliitis Recommendation of BL SI injections. May need a series for optimal pain relief. Risks, benefits of procedure discussed and pt verbalized understanding. Admits to anticoagulant use or medical history of diabetes. Protocol for discontinuation/ continuation of medications caty procedure discussed. Minimal anesthesia provided, if clinically indicated, consisting of Versed and Fentanyl. All questions answered. I have spent less than 30 minutes on patient care today. Dr Prince was available by phone for the evaluation of this patient. The time was used to review the medical records including relevant urine studies and Prescription history (MAPs), review of the available imaging, evaluation and examination of the patient, coordination of care with the medical staff and if applicable referring physicians, as well as creation of the medical record PQRS Narrative: Smoking Status Current every day smoker Hx Alcohol Use (MH) No Home Medications: Ambulatory Orders Fluticasone Nasal [place] [Flonase Nasal [place]] 2 puff EA NOSTRIL DAILY 08/23/22 buPROPion HCL [Wellbutrin SR] 300 mg PO DAILY 08/23/22 Doxylamine Succinate [Unisom] 25 mg PO HS PRN 09/20/22 Voltaren Gel 1 applicate TOPICAL DIRECTED PRN 09/20/22 Zyrtec 1 dose PO DAILY PRN 09/20/22 tiZANidine HCL [Zanaflex] 4 mg PO TID PRN 09/20/22 Celecoxib [CeleBREX] 200 mg PO DAILY 03/30/23 Gabapentin [Neurontin] 300 mg PO TID 03/30/23 Simethicone 40 mg/0.6 ml Drops [Mylicon Drops] 80 mg PO PCHS PRN 03/30/23 Controlled Substance Measures - Controlled Substance Measures Is patient prescribed a controlled substance at discharge?: No
== END ==
LOC: PNWHC3 07:18
PROVIDERS: ATTEND Specialist
DX: M51.36 Other intervertebral disc degeneration, lumbar region (principal); M47.816 Spondylosis without myelopathy or radiculopathy, lumbar region; G89.29 Other chronic pain; F17.200 Nicotine dependence, unspecified, uncomplicated; Z88.3 Allergy status to other anti-infective agents
CPT/HCPCS: 99211

== ENCOUNTER 2023-05-05 07:13 | Day surgery (SDC) | payer BC ==
[2023-05-05] MEDS ORDERED: LACTATED RINGERS 1,000 ML IV SCH (07:24)
[2023-05-05 07:29] VITALS: RESP 16; TEMP 97.5
[2023-05-05] MEDS ORDERED: methylPREDNISolone ACETATE 80 MG/ML 1 ML VIAL ONE (08:33)
[2023-05-05] MEDS ORDERED: IOPAMIDOL M200 10 ML VIAL ONE (08:33)
[2023-05-05] MEDS ORDERED: ROPIVACAINE 5 MG/ML 20 ML AMPULE ONE (08:33)
--- NOTE | 2023-05-05 08:44 | P.PCN ---
Date of Procedure: 05/05/23 Procedure(s) Performed: Procedure= bilateral sacroiliac joints steroid injection under fluoroscopy guidance (fluoroscopy image stored on file in the radiology Department ) Preoperative diagnosis= 1-sacroiliitis 2-lumbar degenerative disc disease 3- lumbar facet arthropathy Postoperative diagnosis=Same as preop Diagnosis . Complication = none Condition= stable Anesthesia= local anesthesia with ropivacaine 0.5% 4 ml only Indication for the procedure= patient complaining of low back pain , examination was positive for severe tenderness over the sacroiliac joints bilaterally and patient diagnosed with sacroiliitis, for this reason he/ she was good candidate for sacroiliac joint steroid injection. Description of the procedure= procedure risk and benefits discussed with the patient, including but not limited, risk of infection and bleeding, and ALLERGIC reaction to the medication and not complete pain relief and patient agreed with the preceding patient taken to the operating room, placed in prone position or standard monitors applied to the patient then after induction of anesthesia back prepped with chlorhexidine 3 times , Then under strict sterile technique, first I did the right sacroiliac joint the which was identified under fluoroscopy guidance been local infiltration of the skin and subcu interstitial with lidocaine 1% then 22-gauge Quincke Needle advanced slowly under fluoroscopy and placed in the right sacroiliac joint needle placement confirmed with AP and oblique and lateral view, then after that Isovue 200 one mL injected which confirmed the correct needle placement with the appropriate arthrogram of the sacroiliac joint, and after appropriate needle placement confirmed and after negative aspiration, or heme , then Ropivacaine 0.5% 2 mL, and 40 mg of Depo-Medrol mixed together and injected in the right sacroiliac joint after negative aspiration patient tolerated the procedure well without any complication. Then the left sacroiliac joint steroid injection done under strict sterile technique local infiltration of the skin and subcu interstitial at the location of the left sacroiliac joint then a 22-gauge Quincke Needle advanced slowly under fluoroscopy time placed in the left sacroiliac joint, needle placement confirmed with AP and oblique and lateral view then after appropriate needle placement confirmed, with the AP and oblique and lateral then after negative aspiration Isovue 200 1 mL injected showed arthropathy of the left sacroiliac joint, and after negative aspiration 0.5% Ropivacaine 2 mL and 40 mg of Depo- Medrol injected in the left sacroiliac joint after negative aspiration patient tolerated the procedure well that any complications and she will follow up in clinic 3 weeks
[2023-05-05 08:59] VITALS: BP 134/81; PULSE 90
--- NOTE | 2023-05-05 08:59 | FL ---
Intraoperative/procedural fluoroscopic services were provided. Total fluoroscopy time is 5.3 seconds with a total of 2 submitted images to PACS. Please see the operative/procedural note for further deta ils. DAP: [id number] mGym2
== END 2023-05-05 09:29 | disposition home or self-care (01) ==
LOC: ORPAIN 07:13
PROVIDERS: ATTEND Specialist
DX: M46.1 Sacroiliitis, not elsewhere classified (principal); M51.36 Other intervertebral disc degeneration, lumbar region; M47.816 Spondylosis without myelopathy or radiculopathy, lumbar region
CPT/HCPCS: 27096; J1040; Q9966; J2795

== ENCOUNTER → 2023-05-30 | Outpatient (CLI) | payer BC ==
[2023-05-30 11:36] VITALS: BP 134/86; PULSE 105; RESP 16; TEMP 96
--- NOTE | 2023-05-30 14:24 | P.PAINPG ---
PQRS Measure Charge Sheet Comment: A 43 yr old male w at side with a history of severe and chronic LBP secondary to lumbar DDD and spondylosis with facet arthropathy without myelopathy presents today for evaluation s/p BL SI injection. Pt states he experienced 0 % pain relief s/p procedure. Pain level is provoked at 2 /10 in intensity, constant, localized in the lumbar spine, stabbing in character w shooting towards the upper back. Pain is provoked by standing/ walking for periods of 15 min, or lifting. Pain is alleviated with PT x 4 wks in Sep 2022, heat, medications, topical, repositioning and rest. Oswestry axial pain score of 31. Interventional pain procedures completed include BL MBB L3-L5 x1, MAXIMILIAN L5-S1 x2, BL SI injection Patient is currently on Neruontin, Tramadol, Zalaflex, BioFreeze gel Patient denies any side effects of the medication(s), denies excessive drowsiness or sleepiness, denies suicidal ideation and reports that the current pain medication is helping to control the pain and improve activities of daily living. Patient denies any motor or sensory deficits. Patient denies any fever or night sweats, denies any change in the bowel movements or urination. Physical Examination: -Constitutional: Cooperative. Not in acute distress . - Neurologic: Cranial nerve II to XII intact. No focal neurological defi cits. - Psychatric: Alert & oriented x 3. Matching mood & appropriate affect. Judgment and insight intact. - Musculoskeletal: Cervical spine: Muscle bulk/ tone/ strength in the bilateral upper extremities normal Vertebral body tenderness to palpation over Spurling test positive Distraction test positive Facet loading test positive TTP Thoracic spine Muscle bulk / tone/ strength in the bilateral paraspinal muscles normal Vertebral body tender to palpation over Facet loading test positive TTP Lumbar spine: Motor bulk/ tone/ strength lower extremities , thigh and legs : 5/5 Deep tendon reflexes : Normal Knee Jerk. Normal Ankle Jerk . Vertebral body tenderness to palpation over Whitaker Test positive Lumbar Facet Loading Test positive Straight Leg Raise: positive at 30 degrees right side/ left side Gaenslen's Test positive Sacral spine : Severe tenderness over the Sacroiliac joint: right side / left side Range of motion: Flexion of the lumbar spine <60 degrees Range of motion: Extension of the lumbar spine <20 degrees Gaenslen's Test positive right side / left side Mariana test: positive right side < left side Thigh Thrust Test positive right side / left side Sacral Thrust Test positive right side < left side Assessment and plan: Chronic LBP secondary to lumbar DDD, spondylosis with facet arthropathy without myelopathy, BL Sacroiliitis Recommendation of follow up w orthopedic surgeon to explore additional treatment options. Pt is unsure if he would consider an IPG at this time. All questions answered. I have spent less than 30 minutes on patient care today. Dr Pricne was yasmeen ilable by phone for the evaluation of this patient. The time was used to review the medical records including relevant urine studies and Prescription history (MAPs), review of the available imaging, evaluation and examination of the patient, coordination of care with the medical staff and if applicable referring physicians, as well as creation of the medical record PQRS Narrative: Smoking Status Current every day smoker Hx Alcohol Use (MH) No Home Medications: Ambulatory Orders Fluticasone Nasal [place] [Flonase Nasal [place]] 2 puff EA NOSTRIL DAILY 08/23/22 buPROPion HCL [Wellbutrin SR] 300 mg PO DAILY 08/23/22 Doxylamine Succinate [Unisom] 25 mg PO HS PRN 09/20/22 Voltaren Gel 1 applicate TOPICAL DIRECTED PRN 09/20/22 Zyrtec 1 dose PO DAILY PRN 09/20/22 tiZANidine HCL [Zanaflex] 4 mg PO TID PRN 09/20/22 Celecoxib [CeleBREX] 200 mg PO DAILY 03/30/23 Gabapentin [Neurontin] 300 mg PO TID 03/30/23 Simethicone 40 mg/0.6 ml Drops [Mylicon Drops] 80 mg PO PCHS PRN 03/30/23 Controlled Substance Measures - Controlled Substance Measures Is patient prescribed a controlled substance at discharge?: No
== END ==
LOC: PNWHC3 09:51
PROVIDERS: ATTEND Specialist
DX: M51.36 Other intervertebral disc degeneration, lumbar region (principal); M47.816 Spondylosis without myelopathy or radiculopathy, lumbar region; G89.29 Other chronic pain; M46.1 Sacroiliitis, not elsewhere classified; M46.96 Unspecified inflammatory spondylopathy, lumbar region; F17.200 Nicotine dependence, unspecified, uncomplicated; Z88.8 Allergy status to other drugs, medicaments and biological substances
CPT/HCPCS: 99211

== ENCOUNTER → 2023-06-28 | Outpatient (CLI) | payer BC ==
--- NOTE | 2023-06-28 15:57 | CT ---
EXAMINATION TYPE: CT thor lumbar spine wo con CT DLP: 1101.4 mGycm, Automated exposure control for dose reduction was used. DATE OF EXAM: 06/28/2023 3:28 PM COMPARISON: None. CLINICAL INDICATION:Male, 43 years old with history of M54.6 PAIN IN T, M54.50 LOW BACK PAIN, UNSPECI FIED; PHH, pre surgical. low back pain and weakness. TECHNIQUE: Axial images of the thoracolumbar spine were obtained without contrast. Coronal and sagitt al reformats were performed. FINDINGS: There are 6 nonrib-bearing lumbar type vertebral bodies identified. Bilateral facet arthrop athy at L6-S1. The thoracolumbar vertebral bodies have preserved heights and alignment. No significan t thoracic degenerative disc disease. No significant thoracic central canal stenosis or neural forami nal stenosis. Broad-based disc bulges at L3-L4, L4-L5, and L5-L6 with mild effacement of the anterior thecal sac. Broad-based disc bulge at L6-S1 with moderate effacement of the anterior thecal sac. No neural foraminal stenosis. The neural foramen are patent bilaterally. Degenerative changes of the destiney ateral SI joints. Postsurgical changes of the GE junction. IMPRESSION: 1. No acute fracture. 2. Mild multilevel degenerative disease of the lumbar spine as described above. This is most prominen t at L6-S1 with a broad-based disc bulge causing moderate central canal stenosis. No significant dege nerative disc disease of the thoracic spine.
== END | disposition home or self-care (01) ==
LOC: RADCTMAIN 15:02
PROVIDERS: ATTEND Orthopaedic Surgery
DX: M51.36 Other intervertebral disc degeneration, lumbar region (principal); M48.061 Spinal stenosis, lumbar region without neurogenic claudication; R53.1 Weakness
CPT/HCPCS: 72128; 72131

== ENCOUNTER → 2023-07-28 | Outpatient (CLI) | payer BC | END | disposition home or self-care (01) | LOC: LABPAT 07:01 | PROVIDERS: ATTEND Orthopaedic Surgery | DX: Z01.812 Encounter for preprocedural laboratory examination (principal); Z22.322 Carrier or suspected carrier of Methicillin resistant Staphylococcus aureus; M43.16 Spondylolisthesis, lumbar region; M47.817 Spondylosis without myelopathy or radiculopathy, lumbosacral region | CPT/HCPCS: 87070 ==

== ENCOUNTER 2023-08-04 10:59 | Observation (INO) | payer BC ==
[2023-07-29 14:45] VITALS: BMI 26.6
[~2023-08-04 10:59] MED LIST changes: +ACETAMINOPHEN TAB 500 MG TAB PO PRN; +GABAPENTIN 300 MG CAP PO PRN; -LACTATED RINGERS 1,000 ML IV SCH; -LIDOCAINE 1% (10MG/ML) FOR IV START INTRADERMA PRN; +ONDANSETRON 4 MG/2 ML VIAL IVP ONE; +ONDANSETRON 4 MG/2 ML VIAL IVP PRN; +TRANEXAMIC 1,000 MG/100ML-NACL 1,000 MG in SALINE 1 100ML.BAG IVPB PRN
[2023-08-04] MEDS: LACTATED RINGERS 1,000 ML IV SCH (11:55)
[2023-08-04] MEDS: DEXAMETHASONE SOD PHOSPHATE 4 MG/ML 1 ML VIAL IV ONE ×2 (11:55→17:18)
--- NOTE | 2023-08-04 11:55 | P.HPOR ---
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 DOI: Chronic DOS: N/A Duration of current treatment regiment:> 1 year HISTORY : Xrays No new xrays taken in office Trauma or injury No Work-Related No Pain description Aching & sharp Location Diffuse Patient notes that their pain radiates to bilateral lower extremities Activity Modification Yes Hand Dominance Left TREATMENTS COMPLETED: 6 weeks of PT completed? Month and Year of last PT date? Yes on 06/30/2022 How many sessions? 12 Did it help? No, patient felt is exacerbated his symptoms Physician directed home exercise completed? Yes, patient has trialed the physician directed home exercise program without relief of their symptoms. Medications Yes, List: Gabapentin, Celebrex, & Zanaflex Alternative interventions Chiropractic:No Massage therapy: No R.I.C.E:Yes Brace:No Injections Yes (Lumbar MAXIMILIAN) How many? 4 Did they help? No RFA:No SUBJECTIVE: Mr. Fang returns to the office today for a preoperative evaluation preceeding his L4-S1 minimally invasive transforaminal lumbar interbody fusion. Otherwise the patient denies any f/c/sob/cp, no incision concerns, no bladder or bowel retention/incontinence, no perineal numbness/tingling, and ambulates independently today. SUBJECTIVE: Mr. Fang returns to the office on 06/23/2023 for a re-check on his low back pain. The patient reports experiencing a continued ache-like, sharp pain throughout the low back that radiates down into the bilateral lower extremities. He notes that his lower extremity symptoms are associated with numbness and tingling. The patient notes a significant increase in bilateral lower extremity weakness. He notes that the left lower extremity weakness is much more severe than the right at this time. The patient reports experiencing a gradual onset of right hip pain, which he feels is related to compensating for his left leg numbness, tingling, and weakness. The patient states that his symptoms are exacerbated by all activity, which makes it very difficult for him to complete all of his regular activities of daily living. The patient reports experiencing moderate to severe sleep disturbances related to his ongoing pain and associated symptoms. The patient states that his symptoms have become debilitating. The patient has trialed conservative treatment measures in the form of physical therapy, physician directed at home stretches/exercises, activity modification, medication management, at home heat/ice therapies, and approximately 4 lumbar epidural steroid injections. The patient denies experiencing any significant or sustained relief from any conservative measures trailed up to this point. The patient is currently taking Gabapentin, Celebrex, and Zanaflex with very minimal relief of his symptoms. Otherwise the patient denies any f/c/sob/cp, no incision concerns, no bladder or bowel retention/incontinence, no perineal numbness/tingling, and ambulates independently today. Mr. Fang presents to the office on 06/14/2023 for an evaluation of their low back pain. The patient reports experiencing a dull, ache-like pain throughout the low back, which has been ongoing for the last several years. The patient denies experiencing any previous injury or trauma to the low back to indicate an exact onset of his current symptoms. The patient reports experiencing intermittent radiating pain down into the bilateral lower extremities. He reports that his lower extremity pain is associated with numbness and tingling, worse on left compared to the right. The patient notes that his symptoms are exacerbated by prolonged walking and standing. The patient reports experiencing mild to moderate to sleep disturbances related to his ongoing pain and associated symptoms. The patient has trialed conservative treatment measures in the form of physical therapy, at home stretches/exercises, activity modification, at home heat/ice therapies, medication management, and lumbar epidural steroid injections, all with no significant or sustained relief. The patient notes that his last lumbar epidural steroid injection was completed approximately 1 month ago exacerbated his current symptoms. For their symptoms, the patient has been taking Tizanidine and Celebrex. Otherwise the patient d enies any f/c/sob/cp, no incision concerns, no bladder or bowel retention/incontinence, no perineal numbness/tingling, and ambulates independently. The patients' past social, medical, family, surgical history, as well as review of systems, have been reviewed. Please refer to the Neurosurgery History and Physical form that has been scanned in to our electronic medical record system. 14 points review of systems completed and as stated in HPI, all other systems reviewed are negative. Social History: [id number]:current smoker P3 Alcohol:none Family History: H2Wmyypn: alive & well. P2 Father: kidney cancer. Sibling(s): alive & well. hypothyroidism Past Medical History: COPD chronic high WBC Aisha malformation Surgical / Procedural History: CHOLECYSTECTOMY HERNIA P1 Current Medications: P1Rx: CeleBREX Ref: 0 Rx: fluticasone propionate Ref: 0 Rx: loperamide Ref: 0 Rx: Neurontin Ref: 0 Rx: Wellbutrin Ref: 0 Rx: Zanaflex Ref: 0 P1 PHYSICAL EXAMINATION: General: Awake, alert, appropriate for age, in no acute distress. HEENT: No unusual neck masses around region of lateral neck triangle, thyroid, supraclavicular groove Heart: Regular rate and rhythm, normal S1, S2 and no murmur/gallop. Lungs: Clear to auscultation bilaterally with no use of accessory muscles. Extremities: Skin warm and dry without acute lesions, coloration, temperature, skin intact, no tenderness or erythema Integument: Hairy patches: ABSENT Dorsal skin dimples: ABSENT Cafe au lait spots: ABSENT Surgical incisions: None Palpation: Please see Pain drawing on Intake sheet for further detail. Midline spinal tenderness: No E6 Cervical Tenderness: No E6 Paralumbar tenderness: No E6 Parathoracic tenderness: No E6 Buttocks tenderness: No E6 Sacroiliac Tenderness: No POSTURAL and MUSCULO-SKELETAL EVALUATION: Coronal Balance: NEUTRAL Recumbent testing: Patient is able to lay flat on back Sagittal Balance: NEUTRAL Shoulder Profile: LEVEL Pelvic Girdle: LEVEL Neck ROM: UNRESTRICTED Lumbar ROM: RESTRICTED Shoulder ROM: Symmetrical Hip ROM: Symmetrical Knee ROM: Symmetrical Hands: Normal appearance, symmetrical Feet: Normal appearance, Symmetrical VASCULAR STATUS : LEFT RIGHT Wrist Pulses INTACT INTACT Pedal Pulses (Dors. pedis & post.tibialis) INTACT INTACT Color NORMAL NORMAL Edema Absent Absent NEUROLOGIC EXAMINATION: Mental Status:Awake and alert, fully oriented, with normal attention, concentration and memory, and fluent, appropriate speech. Cranial Nerves: I: Olfactory not tested. II: Visual acuity normal, no visual field deficit noted with confrontation. III,IV: Normal pupillary reflexes & intact extraocular movements without nystagmus. V,: Intact symmetrical facial sensation. VII: Intact symmetrical facial motor movement VIII: Hearing intact. IX,X: Intact gag, swallow, & normal voice. XI: Sternocleidomastoid, trapezius function intact. XII: Tongue midline with normal movements. L'hermitte's Sign: Negative / absent Spurling'Sign: Absent bilaterally. Cubital percussion test: Absent bilaterally. Barrow-Tinel sign - Carpal region: Absent bilaterally. Straight Leg Raising: Absent bilaterally. Crossed straight leg raise: negative O8 MOTOR EXAM (0-5/5, N/T Muscle appearance: Symmetrical, without signs of atrophy or dystrophy UPPER EXTREMITY RIGHT LEFT Shoulder Abduction 5/5 5/5 Biceps 5/5 5/5 Triceps 5/5 5/5 Wrist Extension 5/5 5/5 Hand Intrinsic 5/5 5/5 Fiberglass Model Maker 5/5 5/5 Hand and finger dexterity intact bilaterally?yes Disdiadochokinesis examination negative bilaterally? yes LOWER EXTREMITY RIGHT LEFT Hip Flexion 5/5 4/5 Knee Extension 5/5 4/5 Knee Flexion 5/5 4/5 Dorsiflexion 5/5 4/5 Plantarflexion 5/5 4/5 EHL 5/5 4/5 FHL 5/5 4/5 Toe heel walk / heel-toe walk intact while maintaining satisfactory balance? No Squatting/straightening w/o assistance to a min of 60 degree knee flexion? No Single leg stance: intact Trendelenburg sign negative bilaterally REFLEXES(0-4/2, NT)Upper ExtremityLower Extremity Right 2 2 Left 2 2 Pathological Reflexes RIGHT LEFT Barrow's Absent Absent Clonus Absent Absent Babinski Absent Absent Sensory system (0-4, N/T) Test type RU CARLOS RL LL Joint-Position 2 2 2 2 Vibration 2 2 2 2 Pain & LT sense 2 2 2 2 Dermatomal Deficit: None None None None Gait and Functional Evaluation: Ambulatory aids:Independent Romberg's test:Intact bilaterally Steady Gait RADIOGRAPHIC STUDIES: No new x-rays completed in office today. IMPRESSION: It was my pleasure to have seen and examined Everett. I reviewed the patient's clinical syndrome, physical findings, and imaging studies during the appointment today. It is my impression that the patient has a diagnosis of. 1. L5-S1 spondylosis with stenosis, severe 2.L3-5 spondylosis 3. Degenerative disc disease throughout the lumbar spine 4. Low back pain I outlined the natural course history without intervention and various interventional options. PLAN: Based on my findings I suggest the following course of action: -I have ordered CT scans of the thoracic and lumbar spine without contrast to be completed prior to surgical intervention. -I discussed treatment options with the patient, including operative and non- operative options, and they have elected to proceed with the following surgical procedure: L4-S1 MIS TLIF The indications, risks, benefits, and alternatives to surgery were discussed with the patient at length. Specifically (but not limited to) the risks of in fection, stiffness, recurrence of symptoms, need for revision surgery, local numbness, neurovascular injury, and blood clots were discussed. The patient's questions were answered. - Ambulate daily - Take medications as directed - Ice and rest for pain and swelling control. Spine Surgery Risk Review Mr. Fang is presenting for evaluation of low back and bilateral lower extremity pain, bilateral lower extremity radiculopathy. It was my pleasure to have seen and examined Mr. Fang. In our visit today we have had a chance to go over subjective complaints, physical examination findings and treatments including the natural course history without intervention and various interventional options. The patients imaging demonstrates: XRay Lumbar Multiview (AP, Lateral, Flexion, Extension) with AP pelvis; 5 views taken at [facility] on 06/14/23: moderate multilevel spondylitic and degenerative changes with preserved alignment. Multilevel diminished disc height. Grade 1 anterolisthesis L5 onto S1. Grade 1 retrolisthesis L1 onto the L2. Vertebral body heights are preserved. No acute osseous abnormalities. Pelvis: The visualized sacrum and iliac wings are within normal limits. [id number]: please see printed report images not available at this time similar findings to the CT imaging of the lumbar spinewith increased specificity of the L4-L5 segment showing spondylosis disc herniation bowel foraminal stenosis. CT of the thoracic or lumbar spine 06/28/2023 done at [facility]: images reviewed with the patient these demonstrate overall fairly decent alignment with good lumbar lordosis somewhat flattened thoracic kyphosis into a flattened cervical lordosis. This is likely due to the hyperlordotic segment at L5-S1 which is somewhat of a transitional segment this is a lumbarized segment. There is severe spondylosis of L5-S1 at this level with collapse of the disc severe facet arthrosis CO facet formation distal to the L5-S1 facet secondary to severe spondylosis and pars elongation as well as foraminal stenosis related to the facet hypertrophy and overgrowth. No acute fracture is noted at this time. No dislocation. No lesions noted. On physical exam, Mr. Fang demonstrates: The patient reports experiencing a continued ache-like, sharp pain throughout the low back that radiates down into the bilateral lower extremities. He notes that his lower extremity symptoms are associated with numbness and tingling. The patient notes a significant increase in bilateral lower extremity weakness. He notes that the left lower extremity weakness is much more severe than the right at this time. The patient reports experiencing a gradual onset of right hip pain, which he feels is related to compensating for his left leg numbness, tinglng, and weakness. The patient states that his symptoms are exacerbated by all activity, which makes it very difficult for him to complete all of his regular activities of daily living. The patient reports experiencing moderate to severe sleep disturbances related to his ongoing pain and associated symptoms. The patient states that his symptoms have become debilitating. I have explained to the patient that as their condition progresses it will cause further neurological deficits and eventual paralysis. Based on the patients imaging, physical exam, and the rapid progression and disabling nature of their symptoms, at this time I recommend surgery in the form of a: L4-S1 MIS TLIF. I discussed the risk and benefits of this procedure at length with Mr. Fang. The patient agreed to considered pursuing the procedure above mentioned. Prior to surgery, she should follow up with her PCP (Cardio, ID, IM etc) for clearance. Questions were invited and answered, and the patient wishes to proceed as outlined below. Currently, I am recommendin.L4-S1 MIS TLIF 2.Follow up with PCP for surgical clearance 3.Review of surgical risks and benefits as well as an educational packet on the proposed surgical procedure. Risks: All surgical procedures come with inherent risks, including those related to positioning, anesthesia, intraoperative findings, and postoperative complications. It is important to understand that surgery does not come with any guarantee of a successful outcome as complications and adverse events are always possible. The patient was given a handout in office today discussing the surgical procedure and risks associated with the intervention, both of which were dis cussed with the patient. These risks include but are not limited to the following: * Experiencing same, different or even worse symptoms in back, neck, arms, or legs compared to before surgery. Requiring further surgery or other forms of treatment presently or at some time in the future at same or other levels of the intended spine surgery. On an extreme but fortunately relatively rare basis severe complication such as blindness, stroke, heart attack, temporary and/or permanent nerve injury, paralysis, coma, or may occur, sometimes without known explanation. Surgical complications may include but are not limited to risk of infection, fluid accumulation in the surgical dissection site, including a seroma or hematoma, that requires additional surgery, wound drainage, bleeding, new numbness or weakness, vision changes/loss, spinal fluid leakage, non-healing and/or infected incision, headaches, difficulty or inability to swallow, hoarseness, hemopneumothorax, pneumothorax, impotence, retrograde ejaculation, vaginal dryness; injury to nerves, spinal cord, blood vessels, lymphatics or other vital organs (i.e., bowel injury, injury to the great vessels); heter otopic bone formation; complications related to the hardware such as screws, rods, cages including misplaced hardware, device failure, instrumentation at the wrong spine level, hardware fracture/breakage, or hardware loosening; vertebral failure of the spinal column above or below the newly placed hardware; retained surgical instrumentations or devices and the need for further surgery. * Medical risks of the planned spine surgery include but are not limited to generalized Infections to the whole body or local areas outside of the surgical site (sepsis), heart attack, bleeding, anaphylaxis, meningitis, seizure, epilepsy, hearing loss, burn joiner, laceration of the head or other areas of the body, bruising, hypersensitivity of the skin, bladder over distension; allergic reaction; shoulder injury related to positioning; fat, blood and air clots to other areas of the body like heart, lungs, brain; failure of internal organs such as lungs, kidneys, liver and excessive bleeding. If blood transfusions are necessary, note that transfusions may cause intolerance reactions such as anaphylaxis or other complex reactions. Despite best efforts, the results of spine surgery might not heal in terms of bone, soft tissues such as skin, fascia, ligaments, and joints. Additionally, in order to achieve best possible results, spine surgery may be carried out beyond the initially planned levels and involve decompression, fusion including insertion of hardware at levels other than the original intended area of surgical interest change some portions of the procedure in order to ensure the best possible outcomes. With spine surgery and spinal fusion, there are different off label uses of instrumentation (devices, implants and hardware) as well as biological substances (bone morphogenic proteins, demineralized bone matrix) as well as using extra bone from allograft sources (i.e. cadaver bone) or autograft (iliac crest bone, ribs, or the spine itself). The patient has been given information about these practices and their inherent risks and benefits. [facility] is an educational center that serves as a training facility for neurosurgical and orthopedic SPEECH AND LANGUAGE CLINICIAN and Nursing students. Physician assistants are medically trained surgical providers who function in the outpatient, inpatient, and operating room setting under the direct supervision of the attending surgeon. [facility] has multiple operating rooms with single and overlapping rooms running daily. They currently function under the required guidelines as produced by the [facility] Finance Committee with regards to the overlapping rooms and will continue to comply with changes to this policy as they occur. The requirements include and are complied with as follows: (1) the critical portions of the overlapping rooms will not occur at the same time, (2) the attending physician will be physically present during the critical portions of the procedure and immediately available during the entire case, and (3) a back-up attending is designated should the primary attending not be immediately available. The patient has had a chance to review all the listed information, has been given print outs detailing this information, and has had all his/her questions answered to their satisfaction. It was my pleasure to have seen and examined Mr. Fang. In our visit today we have had a chance to go over my understanding of our patient's current condition, the natural course history without intervention and various interventional options. Questions were invited and answered, and the patient wishes to proceed as outlined above. I have seen and examined the patient for 25 minutes and we have spent more than 50% of the time in repeat and detailed counseling about the patient's condition, its natural course history with out and as much as can be predicted with surgery and re-review of various surgical treatment options. In conclusion, Mr. Fang requested we proceed with the above suggested surgery and are willing to accept risks and limitations of the suggested surgery as nature of the disease process and our best attempts at treatment for the condition. Thank you again for allowing us to be part of your patient's care. Please don't hesitate to contact me if you have any further questions. Signed and authenticated by: faustino Wary DO [facility] Complex and Minimally Invasive Spine Surgery [address] [place], [place] [id number] Follow- up: Post procedure Patient Education: (Informational booklet, instructions, etc) given at today's appointment: Yes .ED:Patient Education: Y Medications Reviewed: YES In our visit today Mr. Fang and I have had a chance to go over my understanding of the patient's current condition, the natural course history without intervention and various interventional options. Questions were invited and answered, and the patient wishes to proceed as outlined above. I will be sure to keep you updated afterMr. Fang returns here for further follow-up. Thank you again for your referral. Please do not hesitate to contact me if you have any further questions. Signed and authenticated by: Emiliano Wray DO [facility] Sp[facility] [address] [place] [id number] This message is confidential, intended only for the named recipient(s) and may contain information that is privileged or exempt from disclosure under applicable law. If you are not the intended recipient(s), you are notified that the dissemination, distribution or copying of this information is strictly prohibited. If you received this message in error, please notify the sender then delete this message. Patient verbalizes understanding of the information discussed. The above note was initiated by Oumou Candelaria, physician recording commercial loan assistant for Dr. Emiliano Wray. This note has been reviewed by Dr. Wray, who has made his personal changes and impressions for this document. CC: BLANCA Dailey Past Medical History Past Medical History: COPD Additional Past Medical History / Comment(s): Arnold-Chiari malformation, nephrolithiasis, DDD with back pain, eczema left thigh, hx. of hiatal hernia- had surgery one year ago and states feeling much better, pt states WBC's always elevated. History of Any Multi-Drug Resistant Organisms: None Reported Past Surgical History: Cholecystectomy Additional Past Surgical History / Comment(s): Surgery as for "no soft spot", EGD. Hiatal hernia surgery one year ago. Past Anesthesia/Blood Transfusion Reactions: No Reported Reaction, Motion Sickness Additional Past Anesthesia/Blood Transfusion Reaction / Comment(s): Difficulty waking up after colonoscopy. Smoking Status: Current every day smoker - Past Family History Father Family Medical History: Cancer, COPD Additional Family Medical History / Comment(s): Kidney cancer, emphysema. Mother Family Medical History: Hypertension Additional Family Medical History / Comment(s): Kidney issues, gallbladder issues. Medications and Allergies Home Medications Medication Instructions Recorded Confirmed Type Fluticasone Nasal [place] [Flonase 2 puff EA NOSTRIL DAILY 08/23/22 07/29/23 History Nasal [place]] buPROPion HCL [Wellbutrin SR] 300 mg PO DAILY 08/23/22 07/29/23 History Doxylamine Succinate [Unisom] 25 mg PO HS PRN 09/20/22 07/29/23 History Zyrtec 1 dose PO DAILY PRN 09/20/22 07/29/23 History tiZANidine HCL [Zanaflex] 4 mg PO TID PRN 09/20/22 07/29/23 History Celecoxib [CeleBREX] 200 mg PO DAILY 03/30/23 07/29/23 History Gabapentin [Neurontin] 300 mg PO TID 03/30/23 07/29/23 History Allergies Allergy/AdvReac Type Severity Reaction Status Date / Time trazodone AdvReac Unknown nausea, Verified 08/04/23 11:54 felt like he was drunk Physical Examination Osteopathic Statement: *. No significant issues noted on an osteopathic structural exam other than those noted in the History and Physical/Consult.
[2023-08-04 12:08] LABS: Basophils % (A) 0 %; Eosinophils # (A) 0.2 k/uL (0-0.7); Eosinophils % (A) 1 %; HCT 49.5 % (39.0-53.0); HGB 16.9 gm/dL (13.0-17.5); Lymphocytes # (A) 3.2 k/uL (1.0-4.8); Lymphocytes % (A) 20 %; MCHC 34.2 g/dL (31.0-37.0); MCV 93.7 fL (80.0-100.0); Monocytes # (A) 1.2 k/uL (0-1.0); Monocytes % (A) 7 %; Neutrophils % (A) 69 %; Platelet Count 317 k/uL (150-450); RBC 5.28 m/uL (4.30-5.90); RDW 13.1 % (11.5-15.5); WBC 15.8 k/uL (3.8-10.6)
[2023-08-04 12:17] LABS: Prothrombin Time 10.6 sec (9.0-12.0)
[2023-08-04 12:35] LABS: ALT 25 U/L (4-49); AST 23 U/L (17-59); African American GFR (CKD) >90 (>60 ml/min/1.73 sqM); Albumin 4.3 g/dL (3.5-5.0); Alkaline Phosphatase 95 U/L (38-126); Anion Gap 8 mmol/L; Blood Urea Nitrogen 13 mg/dL (9-20); Calcium 9.3 mg/dL (8.4-10.2); Carbon Dioxide 24 mmol/L (22-30); Chloride 108 mmol/L (98-107); Glucose 95 mg/dL (74-99); Non-African American GFR(CKD) 87 (>60 ml/min/1.73 sqM); Potassium 4.5 mmol/L (3.5-5.1); Sodium 140 mmol/L (137-145); Total Bilirubin 1.2 mg/dL (0.2-1.3); Total Protein 7.2 g/dL (6.3-8.2)
[2023-08-04] MEDS ORDERED: TRANEXAMIC 1,000 MG/100ML-NACL PREMIX BAG ONE (13:14)
[2023-08-04] MEDS ORDERED: MIDAZOLAM 2 MG/2 ML VIAL ONE (13:14)
[2023-08-04] MEDS ORDERED: KETAMINE HCL IN 0.9 % NACL 50 MG/5 ML SYRINGE ONE (13:14)
[2023-08-04] MEDS ORDERED: fentaNYL (PF) 50 MCG/ML 2 ML AMP ONE (13:14)
[2023-08-04] MEDS ORDERED: LIDOCAINE 2% INJ 20 MG/ML (2 ML VIAL) ONE (13:14)
[2023-08-04] MEDS ORDERED: SUCCINYLCHOLINE CHLORIDE 200 MG/10 ML VIAL IV ONE (13:14)
[2023-08-04] MEDS ORDERED: PROPOFOL 10 MG/ML 20 ML VIAL IV ONE (13:14)
[2023-08-04] MEDS ORDERED: THROMBIN (BOVINE) 5,000 UNIT VIAL TOPICAL ONE (13:18)
[2023-08-04] MEDS ORDERED: GELATIN SPONGE,ABSORB (LARGE) 1 EACH SPONGE TOPICAL ONE (13:18)
[2023-08-04] MEDS ORDERED: LIDOCAINE 1%-EPI 1:100,000 50 ML VIAL SQ ONE (13:18)
[2023-08-04] MEDS ORDERED: BUPIVACAINE (PF) 0.5% 30 ML VIAL SQ ONE (13:18)
[2023-08-04] MEDS ORDERED: LACTATED RINGERS 1,000 ML IV ONE (15:20)
[2023-08-04] MEDS ORDERED: HYDROcodone/APAP 5-325MG 1 EACH TAB PO PRN (15:42)
[2023-08-04] MEDS ORDERED: HYDROmorphone 0.5 MG/0.5 ML SYRINGE IVP PRN (15:42)
[2023-08-04] MEDS ORDERED: SENNOSIDES-DOCUSATE SODIUM 1 EACH TAB PO PRN (15:42)
[2023-08-04] MEDS ORDERED: MAGNESIUM HYDROXIDE 2,400 MG/30 ML CUP PO PRN (15:42)
--- NOTE | 2023-08-04 15:46 | XR ---
Intraoperative/procedural fluoroscopic services were provided for minimally invasive lumbar fusion at L5-S1. Total fluoroscopy time is 56.4 seconds with a total of 3 submitted images to PACS. Total DAP 6.2138 Gycm2. Please see the operative note for further details.
[2023-08-04] MEDS: HYDROmorphone 0.5 MG/0.5 ML SYRINGE IVP PRN ×2 (16:15→16:25)
[2023-08-04] MEDS: GABAPENTIN 300 MG CAP PO SCH ×2 (17:54→19:38)
[2023-08-04] MEDS: ACETAMINOPHEN TAB 325 MG TAB PO SCH ×2 (17:55→22:54)
--- NOTE | 2023-08-04 19:03 | P.OP ---
Date of Procedure: 08/04/23 Preoperative Diagnosis: 1. 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 L5-S1 SPONDYLOSIS WITH STENOSIS, LE RADICULOPATHY 3. LE WEAKNESS 4. LOW BACK PAIN Postoperative Diagnosis: 1. 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 L5-S1 SPONDYLOSIS WITH STENOSIS, LE RADICULOPATHY 3. LE WEAKNESS 4. LOW BACK PAIN Procedure(s) Performed: 1. L5-S1 POSTERIOLATERAL AND INTERBODY FUSION (50829) 2. INSTRUMENTATION L5-S1 (63199) 3. LAMINOFORAMINOTOMY L5-S1 (92805) 4. INSERTION OF BIOMECHANICAL DEVICE L5-S1 (11910) 5. USE OF Inspiris NAVIGATION FOR SCREW PLACEMENT (51794) USE OF IONM ALL SCREWS TESTING > 20mA USE OF IO MICROSCOPE Implants: -VICENTE EVEREST SAHIL AND SCREWS -GLOBUS SABLE CAGE 7-14, LONG, 15 DEG -MAGNATOS, ALLOCELL AF, ARTHROCELL, AUTOGRAFT, Anesthesia: GETA Surgeon: Emiliano Wray It Risk Advisor #1: Tony Martin (REGULO Olivares Was present and assisted with all aspects of the case from positioning to dressing placement) Estimated Blood Loss (ml): 50 IV fluids (ml): 1,300 Urine output (ml): 0 Pathology: none sent Condition: stable Disposition: PACU Indications for Procedure: Mr. Fang is presenting for evaluation of low back and bilateral lower extremity pain, bilateral lower extremity radiculopathy. It was my pleasure to have seen and examined Mr. Fang. In our visit today we have had a chance to go over subjective complaints, physical examination findings and treatments including the natural course history without intervention and various interventional options. The patients imaging demonstrates: XRay Lumbar Multiview (AP, Lateral, Flexion, Extension) with AP pelvis; 5 views taken at [facility] on 06/14/23: moderate multilevel spondylitic and degenerative changes with preserved alignment. Multilevel diminished disc height. Grade 1 anterolisthesis L5 onto S1. Grade 1 retrolisthesis L1 onto the L2. Vertebral body heights are preserved. No acute osseous abnormalities. Pelvis: The visualized sacrum and iliac wings are within normal limits. [email or web address]: please see printed report images not available at this time similar findings to the CT imaging of the lumbar spinewith increased specificity of the L4-L5 segment showing spondylosis disc herniation bowel foraminal stenosis. CT of the thoracic or lumbar spine 06/28/2023 done at [facility]: images reviewed with the patient these demonstrate overall fairly decent alignment with good lumbar lordosis somewhat flattened thoracic kyphosis into a flattened cervical lordosis. This is likely due to the hyperlordotic segment at L5-S1 which is somewhat of a transitional segment this is a lumbarized segment. There is severe spondylosis of L5-S1 at this level with collapse of the disc severe facet arthrosis CO facet formation distal to the L5-S1 facet secondary to severe spondylosis and pars elongation as well as foraminal stenosis related to the facet hypertrophy and overgrowth. No acute fracture is noted at this time. No dislocation. No lesions noted. On physical exam, Mr. Fang demonstrates: The patient reports experiencing a continued ache-like, sharp pain throughout the low back that radiates down into the bilateral lower extremities. He notes that his lower extremity symptoms are associated with numbness and tingling. The patient notes a significant increase in bilateral lower extremity weakness. He notes that the left lower extremity weakness is much more severe than the right at this time. The patient reports experiencing a gradual onset of right hip pain, which he feels is related to compensating for his left leg numbness, tinglng, and weakness. The patient states that his symptoms are exacerbated by all activity, which makes it very difficult for him to complete all of his regular activities of daily living. The patient reports experiencing moderate to severe sleep disturbances related to his ongoing pain and associated symptoms. The patient states that his symptoms have become debilitating. I have explained to the patient that as their condition progresses it will cause further neurological deficits and eventual paralysis. Based on the patients imaging, physical exam, and the rapid progression and disabling nature of their symptoms, at this time I recommend surgery in the form of a: L4-S1 MIS TLIF. I discussed the risk and benefits of this procedure at length with Mr. Fang. The patient agreed to considered pursuing the procedure above mentioned. Prior to surgery, she should follow up with her PCP (Cardio, ID, IM etc) for clearance. Questions were invited and answered, and the patient wishes to proceed as outlined below. Currently, I am recommendin.L5-S1 VS L4-S1 MINIMALLY INVASIVE TRANSFORAMINAL LUMBAR INTERBODY FUSION Description of Procedure: L5-S1 MIS TLIF RADHA (R) The patient was seen and examined in the preoperative area. All preoperative protocols were followed. Informed consent was obtained, risks and benefits of the procedure were discussed at length. Risks including bleeding infection damage to the surrounding tissue and risk of reoperation were discussed with the patient. Risk of anesthesia up to and including was discussed with the patient. These are outlined in the risk review. They were willing to accept these risks and all the risks of surgery. The patient was given a weight-based dose of antibiotics in the form of 2 g Ancef. The patient was seen and evaluated by the anesthesia team who deemed them fit for surgery. The site was marked, the patient was willing to proceed with the procedure. The patient was transferred to the operative suite by the Department of anesthesia. They were then drifted off to sleep by the department anesthesia and GETA was performed. The patient tolerated this well. Pritchard catheter was placed by nursing staff, a-traumatically. Once confirmation of lines and ventilation the patient was transferred to a prone William table very carefully. All bony prominences including wrists, elbows, axilla, chest, hips, and thighs, and feet were padded very well. Special attention was paid to the genitalia, and these were padded accordingly. SCDs were placed on bilateral lower extremities and were connected. Arms were well padded and placed on arm boards up and out in the 90/90 position. Once in position, again we confirmed good ventilation capabilities and that lines were running appropriately. The patients Lumbar spine was then exposed. 1010s were placed outlining the incision site. Standard alcohol was used to clean the incision site and allowed to dry. C-arm was used to needle localize the pedicles at L5-S1 and bio-angel the patient and confirm level for incision which was marked with a skin marker. Operative briefing was performed with all teams and everyone in agreement to proceed. The patient was then prepped and draped in a normal sterile fashion. Timeout was then performed, and all parties agreed with the procedure to be performed. Skin nicks were made over the PSIS on the right side and pins placed for the Neuropure Navigation tracker. This was secured and then a 3D Zhiem spin was registered. Once registered it was tested and confirmed to be accurate. We then targeted pedicles b/l at L5 and S1 using navigated Jamshidi and drill guide. Wires were then placed in their void and confirmed to be in good position on AP and Lateral. Contralateral right side screws were then placed over wires and tested and they all tested above 20 mA. Attention was then turned to interbody fusion at L5-S1. Tubular retractor system was placed at the interspace of L5-S1 using biplanar c arm. Once in position and dilated up to 26mm tube it was locked to the bed and confirmed in good position. Microscope was then brought in for visualization. Limited myomectomy was performed and laminectomy, complete facetectomy and foraminotomy performed at L5-S1 using high speed avi and Kerrison rongure. The ligamentum was removed and dural sac decompressed. Exiting and traversing roots visualized and decompressed. Neural elements were then protected, and disc space accessed with an osteotome. Sequential shaving then done under lateral imaging and complete discectomy performed using tutu, pituitary and curette. Once good bleeding endplates accomplished and good height gnosticism with trials, a combination of autograft, allograft and synthetic placed anterior in the disc space. The cage was then selected and impacted into place under lateral imaging. The cage was then expanded restoring height, lordosis and alignment. The cage was backfilled with bone graft through a funnel. The regulator pin inserter removed and area inspected. Good cage placement, stable cage and no injuries. Area was irrigated copiously, and meticulous hemostasis achieved. The tubular retractor was then removed under direct visualization. Screws were then selected and placed over the previously placed wires on the ipsilateral side. This was done in the fashion described above. Screws were then tested, and all tested above 20 mA. Shells were then placed on the tabs. Sahil length was then measured, and rods selected. They were then placed through the MIS tabs, subfascial. These were then locked into place with set screws and final tightened. Sahil holders removed and images taken showing good placement of rods good lordosis and gnosticism of height. Tabs were broken off. Wounds were then copiously irrigated with NSS. Webster used for TP decortication and mixture of MagnatOs, allograft and autograft packed posterolateral. Facia was then closed with 0 Vircyl. Deep subq closed with 0 Vicryl. Superficial subq closed with 2-0 Vicryl and skin with quinten. Wound edges approximated very well. Wound was then cleaned with alcohol and dried. Wounds dressed in Optifoam dressings. The patient was then transferred off the table back to their hospital bed a- traumatically. They were extubated by the department of anesthesia. They were then transferred to PACU in stable condition having tolerated the procedure with no complications.
[2023-08-04] MEDS: HYDROmorphone 1 MG/ML 1 ML SYRINGE IVP PRN ×2 (19:38→22:55)
[2023-08-04] MEDS: HYDROcodone/APAP 10-325MG 1 EACH TAB PO PRN (21:58)
[2023-08-04] MEDS ORDERED: NICOTINE 7MG/24HR PATCH TRANSDERM STA (22:29)
--- NOTE | 2023-08-05 00:04 | P.CONS ---
History of Present Illness - Reason for Consult Consult date: 08/04/23 - History of Present Illness Patient is a 43-year-old male with a PMH of COPD, Budd-Chiari malformation, and chronic leukocytosis who was admitted for an elective lumbosacral interbody fusion and insertion of a biomechanical device. The patient was seen postoperatively and reported ongoing lower back pain. Pain was rated as 7 out of 10. He denied experiencing chest discomfort, shortness of breath, fever, chills, cough, nausea, vomiting, abdominal pain, diarrhea. Patient reports ongoing smoking one pack of cigarettes daily. Review of systems: Pertinent positives and negatives as discussed in HPI, a complete review of systems was performed and all other systems are negative. Physical examination: Vital signs reviewed General: non toxic, no distress, appears at stated age, normal weight Derm: no unusual rashes/lesions, warm Head: atraumatic, normocephalic, symmetric Eyes: EOMI, no lid lag, anicteric sclera, pupils equal round reactive to light ENT: Nose and ears atraumatic Neck: No cervical lymphadenopathy, trachea midline, supple Mouth: no lip lesion, mucus membranes moist Cardiovascular: S1S2 reg, no murmur, positive dorsalis pedis pulse bilateral, no edema Lungs: CTA bilateral, no rhonchi, no rales, no accessory muscle use Abdominal: soft, nontender to palpation, no guarding Ext: muscle strength 5 out of 5 in all 4 extremities grossly, no gross muscle atrophy, no contractures Neuro: CN II-XI grossly intact, no gross focal neuro deficits Psych: Alert, oriented, appropriate affect Assessment: Chronic conditions: COPD, leukocytosis (chronic, unknown etiology), tobacco abuse Status post lumbosacral surgery with interbody fusion and biomechanical device insertion Plan: Continue with home medications: Bupropion, gabapentin Patient will benefit from outpatient hematology evaluation for chronic leukocytosis We appreciate this opportunity to be involved in this patient's care. We will follow the patient with you. For any further questions, please not hesitate to contact the sound inpatient team. Past Medical History Past Medical History: COPD Additional Past Medical History / Comment(s): Arnold-Chiari malformation, nephrolithiasis, DDD with back pain, eczema left thigh, hx. of hiatal hernia- had surgery one year ago and states feeling much better, pt states WBC's always elevated. History of Any Multi-Drug Resistant Organisms: None Reported Past Surgical History: Cholecystectomy Additional Past Surgical History / Comment(s): Surgery as for "no soft spot", EGD. Hiatal hernia surgery one year ago. Past Anesthesia/Blood Transfusion Reactions: No Reported Reaction, Motion Sickness Additional Past Anesthesia/Blood Transfusion Reaction / Comm: Difficulty waking up after colonoscopy. Past Psychological History: Anxiety, Depression Smoking Status: Current every day smoker Past Alcohol Use History: None Reported Additional Past Alcohol Use History / Comment(s): Smokes 1 ppd, started smoking 18 yrs old. Past Drug Use History: None Reported - Past Family History Father Family Medical History: Cancer, COPD Additional Family Medical History / Comment(s): Kidney cancer, emphysema. Mother Family Medical History: Hypertension Additional Family Medical History / Comment(s): Kidney issues, gallbladder issues. Medications and Allergies Home Medications Medication Instructions Recorded Confirmed Type Fluticasone Nasal [place] [Flonase 2 puff EA NOSTRIL DAILY 08/23/22 08/04/23 History Nasal [place]] buPROPion HCL [Wellbutrin SR] 300 mg PO DAILY 08/23/22 08/04/23 History Doxylamine Succinate [Unisom] 25 mg PO HS PRN 09/20/22 08/04/23 History Zyrtec 1 dose PO DAILY PRN 09/20/22 08/04/23 History tiZANidine HCL [Zanaflex] 4 mg PO TID PRN 09/20/22 08/04/23 History Celecoxib [CeleBREX] 200 mg PO DAILY 03/30/23 08/04/23 History Gabapentin [Neurontin] 300 mg PO TID 03/30/23 08/04/23 History Allergies Allergy/AdvReac Type Severity Reaction Status Date / Time trazodone AdvReac Unknown nausea, Verified 08/04/23 11:54 felt like he was drunk Physical Exam Vitals: Vital Signs Temp Pulse Resp BP Pulse Ox 08/04/23 19:30 98.5 F 85 16 128/81 98 08/04/23 17:15 84 18 136/87 99 08/04/23 17:00 88 18 142/86 97 08/04/23 16:45 90 18 144/90 97 08/04/23 16:30 92 18 150/90 97 08/04/23 16:15 90 18 151/97 97 08/04/23 16:00 92 18 135/78 97 08/04/23 15:46 97.4 F L 94 18 133/80 96 08/04/23 11:39 97.8 F 78 16 114/79 98 Intake and Output 08/04/23 08/04/23 08/05/23 14:59 22:59 06:59 Intake Total 750 500 Output Total 25 Balance 750 475 Intake: IV 750 500 Output: Estimated Blood Loss 25 Other: # Voids 4 Weight 74.9 kg 74.9 kg Results CBC & Chem 7: 08/04/23 11:42 08/04/23 11:42 Labs: Abnormal Lab Results - Last 24 Hours (Table) 08/04/23 08/04/23 Range/Units 11:42 11:42 WBC 15.8 H (3.8-10.6) k/uL Neutrophils # 11.0 H (1.3-7.7) k/uL Monocytes # 1.2 H (0-1.0) k/uL Chloride 108 H (98-107) mmol/L
[2023-08-05] MEDS: CYCLOBENZAPRINE 5 MG TAB PO PRN ×2 (01:07→08:03)
[2023-08-05] MEDS: HYDROmorphone 1 MG/ML 1 ML SYRINGE IVP PRN ×2 (03:09→06:45)
[2023-08-05] MEDS: HYDROcodone/APAP 10-325MG 1 EACH TAB PO PRN (05:59)
[2023-08-05] MEDS: ACETAMINOPHEN TAB 325 MG TAB PO SCH ×4 (06:00→23:17)
[2023-08-05] MEDS: LACTATED RINGERS 1,000 ML IV SCH (07:58)
[2023-08-05] MEDS: GABAPENTIN 300 MG CAP PO SCH ×3 (08:03→20:22)
--- NOTE | 2023-08-05 08:23 | CT ---
EXAMINATION TYPE: CT lumbar spine wo con DATE OF EXAM: 08/05/2023 7:45 AM COMPARISON: 06/28/2023 HISTORY: post surgical CT DLP: 860.6 mGycm Automated exposure control for dose reduction was used. Unenhanced CT of the lumbar spine was performed. Bone and soft tissue window settings are submitted as well as coronal and sagittal reconstructions. There is transitional segment noted with 6 lumbar appearing vertebra seen. L1-L2: Normal disc space height. No disc herniation protrusion or central stenosis. No facet joint arthropathy. No evidence for foraminal encroachment. L2-L3: Normal disc space height. No disc herniation protrusion or central stenosis. No facet joint arthropathy. No evidence for foraminal encroachment. L3-L4: Normal disc space height. Mild posterior disc bulge with minimal effacement ventral thecal sac . No central stenosis. No facet joint arthropathy. No evidence for foraminal encroachment. L4-L5: Mild degenerative disc space narrowing. Broad-based posterior disc bulge with effacement of th e ventral thecal sac. There appears to be bilateral lateral recess stenosis mild in degree. Foramina are patent bilaterally. L5-L6: Chronic artifact limits evaluation. L6 pedicular screws noted. L6-S1: Postoperative changes of decompressive laminectomy. Pedicular screws noted to be in place with postoperative alignment being near anatomic. Intervertebral spacer is noted. Postsurgical soft tissu e changes are seen without unusual collection. IMPRESSION: 1. Postoperative changes at L6-S1 decompressive laminectomy. Postoperative alignment spelled within n ormal limits. 2. Degenerative disc space narrowing and disc bulging as outlined above.
[2023-08-05] MEDS ORDERED: HYDROcodone/APAP 10-325MG 1 EACH TAB PO PRN (08:40)
--- NOTE | 2023-08-05 09:10 | P.PN ---
Subjective Progress Note Date: 08/05/23 Principal diagnosis: 1. L5 defect bilateral with grade 1 spondylolisthesis L5-S1 2. L5-S1 spondylosis with stenosis, lower extremity radiculopathy 3. Lower extremity weakness 4. Low back pain Patient seen and examined this morning. Patient is sitting at bedside. He does have complaint of aching lumbar pain. He states that medication has been provided is providing temporary relief. Medications have been adjusted. Patient has been up and about since the procedure and tolerating activity well. He is urinating without difficulty. Encouraged patient to work with physical therapy this morning. Pending discharge later this afternoon. Objective - Vital Signs Vital signs: Vital Signs Temp 98.4 F 08/05/23 07:23 Pulse 107 H 08/05/23 07:23 Resp 16 08/05/23 07:23 BP 116/80 08/05/23 07:23 Pulse Ox 84 L 08/05/23 07:23 FiO2 Intake & Output 08/04/23 08/05/23 08/05/23 18:59 06:59 18:59 Intake Total 1250 Output Total 25 Balance 1225 Weight 74.9 kg Intake: IV 1250 Output: Estimated Blood Loss 25 Other: # Voids 4 2 - Exam Physical Examination General: The patient is awake and alert, in no acute distress Skin: Skin is warm and dry with no obvious rashes or lesions. Bilateral paralumbar surgical incisions, mild shadowing noted on dressing. Dressing will be changed later this afternoon. Eye: Pupils are equal, round and reactive to light, extra-ocular movements are intact; there is normal conjunctiva bilaterally. Neck: The neck is supple, there is no tenderness and ROM intact. Cardiovascular: There is a regular rate and rhythm. No murmur, rub or gallop is appreciated. Respiratory: Lungs are clear to auscultation, respirations are non-labored, breath sounds are equal. Gastrointestinal: Soft, non-distended, non-tender abdomen. Back: There is no tenderness to palpation in the midline, paralumbar, parathoracic or buttocks region. There is no obvious deformity . Musculoskeletal: ROM limited secondary to pain and stiffness from surgical procedure. Muscle strength in all major muscle groups of bilateral upper extremities 5/5, bilateral lower extremities 4/5. Neurological: CN 2-12 intact. There are no obvious motor or sensory deficits. Movement and coordination equal and intact. Sensory exam to light touch intact C5-T1 and intact from L2-S1. Reflexes 2/4 in bilateral upper and lower extremities. Negative Hoffmans, babinski, and clonus signs. Psychiatric: Cooperative, appropriate mood & affect, normal judgment. - Labs CBC & Chem 7: 08/04/23 11:42 08/04/23 11:42 Labs: Abnormal Lab Results - Last 24 Hours (Table) 08/04/23 08/04/23 Range/Units 11:42 11:42 WBC 15.8 H (3.8-10.6) k/uL Neutrophils # 11.0 H (1.3-7.7) k/uL Monocytes # 1.2 H (0-1.0) k/uL Chloride 108 H (98-107) mmol/L Assessment and Plan Assessment: Postop day 1: L5-S1 MIS TLIF 1. L5 defect bilateral with grade 1 spondylolisthesis L5-S1 2. L5-S1 spondylosis with stenosis, lower extremity radiculopathy 3. Lower extremity weakness 4. Low back pain Plan: -Appreciate compliance consultant and team management. -Activity: Ambulate QID, OOB all meals, up and about, limit lifting bending twisting to less than 5 lbs. Use walker or cane if needed for stability. -Daily PT/OT, increase ambulation strength and balance. -Pain control: Adequate at this time -Meds: reviewed -GI ppx: senna, Miralax -DVT PPX: Mechanical, heparin to start tonight -Hygiene: Shower today. Maintain dressing clean and dry. Meticulous cleaning after BMs away from the incision site -Encourage IS 10x/hr -Dispo: Anticipate discharge home later today with homecare *I reviewed and discussed this case with my attending Dr. Wray, whom has reviewed this chart and films and is in agreement with assessment and plan of care as outlined above. I have personally seen and examined the patient, performed the documentation and the assessment and plan as written. Number of minutes spent on the visit: 20m.
[2023-08-05] MEDS: HYDROcodone/APAP 10-325MG 1 EACH TAB PO SCH ×5 (09:57→23:18)
[2023-08-05 10:58] LABS: Basophils # (A) 0.07 X 10*3/uL (0.00-0.10); Basophils % (A) 0.4 %; Eosinophils # (A) 0.08 X 10*3/uL (0.04-0.35); Eosinophils % (A) 0.5 %; HCT 43.5 % (39.6-50.0); HGB 14.1 d/dL (13.0-17.0); Lymphocytes # (A) 2.01 X 10*3/uL (0.90-5.00); Lymphocytes % (A) 11.9 %; MCH 30.8 pg (27.0-32.0); MCHC 32.4 d/dL (32.0-37.0); Mean Platelet Volume 9.8 FL (9.5-12.2); Monocytes # (A) 1.37 X 10*3/uL (0.20-1.00); Monocytes % (A) 8.1 %; NRBC Per 100 WBC 0 X 10*3/uL (0.00-0.01); Neutrophils # (A) 13.34 X 10*3/uL (1.80-7.70); Neutrophils % (A) 78.6 %; Platelet Count 280 X 10*3/uL (140-440); RBC 4.58 X 10*6/uL (4.40-5.60); RDW 13.2 % (11.5-14.5); WBC 16.96 X 10*3/uL (4.50-10.00)
[2023-08-05 11:23] LABS: BUN/Creat Ratio 9.55 Ratio (12.00-20.00); Blood Urea Nitrogen 10.5 mg/dL (9.0-27.0); Calcium 8.5 mg/dL (8.7-10.3); Carbon Dioxide 24.6 mmol/L (21.6-31.8); Chloride 102 mmol/L (96-109); Glucose 93 mg/dL (70-110); Potassium 4.1 mmol/L (3.5-5.5); Sodium 137 mmol/L (135-145)
--- NOTE | 2023-08-05 12:56 | P.DS ---
Providers Date of admission: 08/05/23 07:36 Expected date of discharge: 08/05/23 Attending physician: Emiliano Wray DO Consults: 08/04/23 15:42 Consult Physician Routine Consulting Provider: Lilli Burr Consult Reason/Comments: medical management s/p L5-S1 MIS TLIF Do you want consulting provider notified?: Yes Primary care physician: Kailash Reyes Hospital Course: Hospital Course: The patient was evaluated preoperatively and found to have the diagnosis of L5 pars defect with spondylolisthesis. They underwent appropriate preoperative care and were willing to undergo the intended procedure. They underwent a successful L5-S1 minimally invasive T LIF, were recovered appropriately and sent to the floor. While on the floor they worked with physical therapy, occupational therapy and nursing to enhance their recovery experience. Their pain was well controlled through their stay and they were started on appropriate medications, DVT ppx modalities, activity and dietary needs. Daily labs were monitored closely, and transfusions were only used when necessary. Medicine as well as other consulting services have made their input and have helped with our team approach and multidisciplinary care. PT milestones have been met and passed and they have made the recommendation of home with home care for this patient and treating providers agree with this care path. The patient will be discharged home with appropriate medications, instructions and follow-up information and in stable condition. Patient Condition at Discharge: Good Plan - Discharge Summary Discharge Rx Participant: Yes New Discharge Prescriptions: New Cyclobenzaprine [Flexeril] 5 mg PO TID PRN #60 tablet PRN Reason: Muscle Spasm HYDROcodone/APAP 10-325MG [[place] 10-325] 1 tab PO Q4-6H PRN #42 tab PRN Reason: Pain cefaDROXiL [Duricef] 500 mg PO Q12HR #10 cap Sennosides/Docusate Sodium [Senna Plus 8.6-50 mg Tablet] 1 each PO DAILY PRN #20 tablet PRN Reason: Constipation No Action buPROPion HCL [Wellbutrin SR] 300 mg PO DAILY Fluticasone Nasal [place] [Flonase Nasal [place]] 2 puff EA NOSTRIL DAILY tiZANidine HCL [Zanaflex] 4 mg PO TID PRN PRN Reason: Muscle Spasm Zyrtec 1 dose PO DAILY PRN PRN Reason: Allergy Symptoms Gabapentin [Neurontin] 300 mg PO TID Doxylamine Succinate [Unisom] 25 mg PO HS PRN PRN Reason: Insomnia Celecoxib [CeleBREX] 200 mg PO DAILY Discharge Medication List Fluticasone Nasal [place] [Flonase Nasal [place]] 2 puff EA NOSTRIL DAILY 08/23/22 [History] buPROPion HCL [Wellbutrin SR] 300 mg PO DAILY 08/23/22 [History] Doxylamine Succinate [Unisom] 25 mg PO HS PRN 09/20/22 [History] Zyrtec 1 dose PO DAILY PRN 09/20/22 [History] tiZANidine HCL [Zanaflex] 4 mg PO TID PRN 09/20/22 [History] Celecoxib [CeleBREX] 200 mg PO DAILY 03/30/23 [History] Gabapentin [Neurontin] 300 mg PO TID 03/30/23 [History] Cyclobenzaprine [Flexeril] 5 mg PO TID PRN #60 tablet 08/05/23 [Rx] HYDROcodone/APAP 10-325MG [[place] 10-325] 1 tab PO Q4-6H PRN #42 tab 08/05/23 [Rx] Sennosides/Docusate Sodium [Senna Plus 8.6-50 mg Tablet] 1 each PO DAILY PRN #20 tablet 08/05/23 [Rx] cefaDROXiL [Duricef] 500 mg PO Q12HR #10 cap 08/05/23 [Rx] Follow up Appointment(s)/Referral(s): [facility] [REFERRING] - As Needed (Call to inquire about disability pay. ) Kailash Reyes MD [Primary Care Provider] - 1 Week Emiliano Wray DO [Doctor of Osteopathic Medicine] - 2 Weeks Activity/Diet/Wound Care/Special Instructions: Spine Discharge and Recovery Instructions Date of Surgery: 08/04/2023 Diagnosis: L5 pars defect with spondylolisthesis Procedure: L5-S1 TN TLIF Medications: See medication list All medication refills should be obtained through your primary care doctor or your clinic spine surgeon. Please discuss prescription refills at your follow up appointment. Do not call the hospital for medication refills. Dressing: Leave your dressing in place for a total of 5 days post operatively. Then you may remove your dressing and leave open to air. Keep the area clean and if not able to keep area clean, then cover with sterile gauze and tape. Showering: You may shower 3 days after your procedure allowing soap and water to run over incision. Do not scrub. Do not soak. Blot dry. Follow up: Please confirm a follow up appointment with your surgeon 3 weeks post operatively. Please make an appointment to follow up with your PCP in 1-2 weeks after surgery for evaluation 3 phase, 3-week plan POST OP WEEKS 1-3 1. Lifting/carrying/pushing/pulling limited to less than 5 pounds. 2. Do not sit for longer than 15 minutes at one time. Get up and walk around. Prolonged sitting is NOT advised. If you lay down, see if you can tolerate laying down on you front (belly side) 3. Walk for periods of 15 minutes = 1 mile but no longer; do it multiple times times each day. 4. Ice your low back after activity. POST OP WEEKS 3-6 1. Lifting limited to less than 20 pounds. 2. Do not sit for longer than 30 minutes at a time. Frequently change positions. Use a sit-to stand workstation or take frequent breaks from sitting if you have returned to work. 3. Walk for 30 minutes each day. If possible, do these three or more times a day POST OP WEEKS 6+ At your 6-week appointment we will give you a physical therapy referral to focus on a core stabilization and strengthening program. You should also work on leg & buttock strengthening, hamstring & quadriceps stretching, and continue a low impact aerobic activity program such as swimming, walking, or riding a stationary bicycle. During the initial 6 weeks after your surgery, you are at the highest risk of re-injuring your spine. You should generally avoid BLTs (bending, lifting and twisting combination motions) and follow the above guidelines to reduce the chance of reinjury. You can anticipate post op appointments in our office at approximately 3 weeks and 6 weeks after your surgery. INCISION CARE: If your incision is not draining you do NOT need to cover it with a dressing. Keep your incision clean, dry and intact. In most cases, we apply skin glue, quinten or sutures to the incision at the time of surgery. This will be like a crust or have the appearance of a scab and will fall off in time on its own. The stitches or quniten need to be removed at 3 weeks post op appointment. You may begin to shower 3 days after surgery (this allows the glue to aparicio well). However, please avoid scrubbing the incision site or peeling off any of the skin glue. This will ensure optimal healing of your incision. Also, during this time avoid soaking the incision area in water - this includes swimming pools, hot tubs or baths. No ointments, lotions or oils on the incision until your surgeon allows. Leave quinten, sutures or glue in place. Neurological dysfunction that comes on suddenly can also be a sign of a stroke. Below some common symptoms of a stroke are listed: B - balance difficulty such as sudden onset walking or leaning to one side - NEW E - eye problem such as sudden double vision or trouble seeing on one side - NEW F - Facial weakness or numbness on one side - NEW A - Arm or leg weakness or numbness on one side - NEW S - Slurred speech or difficulty with word finding - NEW T - Time is BRAIN! Call 911 as soon as you recognize these symptoms Diet: Consume a regular diet rich in vegetables and lean protein such as chicken or fish. You should consume in a ratio of approximately 20% fats|40% carbohydrates|40%protein. Vegetables, sweet potatoes, brown rice or quinoa are examples of good carbohydrates. Chips, white bread, cookies and sweets/sugar are examples of bad carbohydrates. Limit your bad carbs, go wild with good carbs. "Life's Simple 7" Guidelines as per [place] [employer] These will help you reclaim your life after surgery and press operator helper in your recovery, keeping in mind your restrictions. (1) Get Active. Physical activity can help people lose weight, control high blood pressure and cholesterol, feel emotionally better, and sleep better. (2) Control Cholesterol. Avoid a diet high in saturated fat, trans fat, & cholesterol. Limit whole milk & cream, ice cream, butter, egg yolks, processed meats (like sausage and hot dogs), and fatty meats. Choose healthy foods that are low in saturated fat, trans fat and cholesterol which include: Fruits and vegetables, fiber rich grain products (like whole grain pasta and brown rice), lean meat such as chicken, fish, nuts, seeds, and legumes. (3) Eat Better. Eat small portions. Shop at the grocery with a list and do no t stray from it. Tips for a healthy diet include: Limit sodium intake to less than 1500mg daily, avoid prepackaged, processed, and fast foods, choose a diet rich in fruits, vegetables, and whole grain, high fiber foods, and limit saturated & cholesterol in your diet. (4) Manage Blood Pressure. If you have high blood pressure, you should have a cuff at home so that you can check your blood pressure regularly. Be sure you have a good cuff. An arm one is generally better than a wrist one. Bring the cuff to a doctor's appointment to validate that the measurements that your cuff are taking are accurate. Take your blood pressure twice daily when you are sitting down and relaxing. Record the numbers in a log and bring this log with you to your doctors' appointments. (5) Lose Weight if your BMI is above 25. A healthy BMI is between 19-25. To calculate Your BMI, you may use a Standard BMI Calculator on the NIH BMI website: <www.nhlbi.nih.gov/guidelines/obesity/BMI/bmicalc.htm>. Weigh oneself daily. If you are overweight, set a goal to lose weight. A pound a week loss if needed is a good target. (6) Reduce Blood Sugar. Limit foods and liquids with "added sugars." (Added sugars include sucrose, fructose, glucose, maltose, dextrose, high fructose corn syrup, corn syrup, concentrated fruit juice and honey). (7) Stop Smoking. If you smoke, quitting smoking is one of the best things that you can do for your health. Smoking increases your risk of heart attack, stroke, and peripheral vascular disease, which is a build-up of plaque in your arteries. Please discard all the cigarettes and lighters in your house. Have a plan for what you will do when you have the urge to smoke. Direct and second- hand smoke shortens your life as well as the lives of your family, friends and others around you. For your health and the health of those around you, please consider quitting! Proper Bending Body Mechanics: Maintain a wide stance with one foot slightly in front of the other. Keep your back straight. Bend utilizing the strength in your hips and knees. Do not bend at the waist. Maintain the lifted object at your waist-level close to your body. Avoid lifting weight that causes immediately pain or pain anywhere in the body afterwards. Smoking/Nicotine If there was ever one thing that you could do to increase your overall health, decrease your risk of cardiovascular problems by about 39% the second you make the choice, it is to STOP SMOKING. Your body's most instant gratification is the second you stop smoking. We have all heard the studies, read the articles but it is true, smoking is extremely bad for your overall health, and moreover i t is detrimental to your bone health. Nicotine, IN ANY FORM, kills bone cells, prevents your body from healing fractures, and significantly prolongs healing after surgery. In spine surgery s pecifically, it increases your risk of not healing your bones to create a fusion and increases your risk of having a revision surgery due to this up to 60%. I know it is hard. I know it feels impossible. But there are ways. Take control of your life. We are here to help you through it. And when you are ready, ask us and we can direct you to help if you desire. Use the START Plan to Quit Smoking (please visit the Helpguide.org website listed below for more information): S = Set a quit date. Choose a date within the next 2 weeks, so you have enough time to prepare witho ut losing your motivation to quit. If you mainly smoke at work, quit on the weekend, so you have a few days to adjust to the change. T = Tell family, friends, and co-workers that you plan to quit. Let your friends and family in on your plan to quit smoking and tell them you need their support and encouragement to stop. Look for a quit ankur who wants to stop smoking as well. You can help each other get through the rough times. A = Anticipate and plan for the challenges you'll face while quitting. Most people who begin smoking again do so within the first 3 months. You can help yourself make it through by preparing ahead for common challenges, such as nicotine withdrawal and cigarette cravings. R = Remove cigarettes and other tobacco products from your home, car, and work. Throw away all your cigarettes (no emergency pack!), lighters, ashtrays, and matches. Wash your clothes and freshen up anything that smells like smoke. Shampoo your car, clean your drapes and carpet, and steam your furniture. T = Talk to your doctor about getting help to quit. Your doctor can prescribe medication to help with withdrawal and suggest other alternatives. If you can't see a doctor, you can get many products over the counter at your local pharmacy or grocery store, including the nicotine patch, nicotine lozenges, and nicotine gum. Resources for Quitting Smoking: <h ttps://www.[place].gov/documents/[facility]/Quit_Tobacco_Resources_for_patients_31348 0_7.pdf> Supplementation: Take recommended dosages of Vitamin D and Calcium to help fortify your bones and help them to heal. See your health maintenance packet for dosages and recommended levels. DVT/VTE prophylaxis: You will be given compression stockings from the hospital. Wear these daily for the first two weeks after surgery. You may take them off at night. You may be prescribed a medication to help thin your blood. Take this as directed. If you are not prescribed this medication, early and frequent ambulation has been shown to be the best prophylaxis to deep vein thrombosis and sequelae related to this event. Discharge Disposition: HOME WITH HOME HEALTH SERVICES
[2023-08-05] MEDS: NICOTINE 21MG/24HR PATCH TRANSDERM SCH (13:24)
--- NOTE | 2023-08-05 13:38 | P.PN ---
Subjective Progress Note Date: 08/05/23 Subjective: Seen and examined at bedside. No acute events overnight. Temperature was slightly elevated at 100.2 overnight. Pertinent positives and negatives as discussed above, a complete review of systems was performed and all other systems are negative. Vitals Signs Reviewed. General: nontoxic, no distress, appears at stated age Derm: warm, dry, back dressing nonobserved Head: atraumatic, normocephalic, symmetric Eyes: EOMI, no lid lag, anicteric sclera Mouth: no lip lesion, mucus membranes moist Cardiovascular: S1S2 reg, no murmur Lungs: CTA bilateral, no rhonchi, no rales , no accessory muscle use Abdominal: soft, nontender to palpation, no guarding, no appreciable organomegaly Ext: no gross muscle atrophy, no edema, no contractures Neuro: CN II-XI grossly intact, no focal neuro deficits Psych: Alert, oriented, appropriate affect Data Reviewed Today: Pertinent Labs: WBC 16.96, creatinine 1.1 Imaging: No new imaging Assessment and Plan: Status post lumbosacral surgery COPD Nicotine dependence Leukocytosis, chronic in nature, also reactive and the setting of surgery Elevated temperature, possibly secondary to atelectasis -May benefit from outpatient hematology evaluation for leukocytosis -Rest of the home medications reviewed -Reconciliation done for discharge home Patient is medically optimized for discharge home Thank you for allowing us to participate in the care of this pleasant patient. Do not hesitate to contact us with questions. Someone can be reached from the [facility] hospitalist group all hours of the day at [phone] or via perfect serve. Objective - Vital Signs Vital signs: Vital Signs Temp 98.1 F 08/05/23 13:13 Pulse 101 H 08/05/23 13:13 Resp 16 08/05/23 13:13 BP 128/85 08/05/23 13:13 Pulse Ox 95 08/05/23 13:13 FiO2 Intake & Output 08/04/23 08/05/23 08/05/23 18:59 06:59 18:59 Intake Total 1250 Output Total 25 Balance 1225 Weight 74.9 kg Intake: IV 1250 Output: Estimated Blood Loss 25 Other: # Voids 4 2 1 # Bowel Movements 0 - Labs CBC & Chem 7: 08/05/23 05:33 08/05/23 05:33 Labs: Abnormal Lab Results - Last 24 Hours (Table) 08/05/23 08/05/23 Range/Units 05:33 05:33 WBC 16.96 H (4.50-10.00) X 10*3/uL Neutrophils # 13.34 H (1.80-7.70) X 10*3/uL Monocytes # 1.37 H (0.20-1.00) X 10*3/uL BUN/Creatinine Ratio 9.55 L (12.00-20.00) Ratio Calcium 8.5 L (8.7-10.3) mg/dL
[2023-08-05] MEDS: HEPARIN SODIUM,PORCINE 5,000 UNIT/ML 1 ML VIAL SQ SCH (20:23)
[2023-08-06] MEDS: HYDROcodone/APAP 10-325MG 1 EACH TAB PO SCH ×3 (04:35→11:29)
[2023-08-06] MEDS: ACETAMINOPHEN TAB 325 MG TAB PO SCH (06:01)
[2023-08-06 07:06] LABS: Basophils % (A) 0 %; Eosinophils # (A) 0.1 k/uL (0-0.7); Eosinophils % (A) 1 %; HCT 44.7 % (39.0-53.0); HGB 14.5 gm/dL (13.0-17.5); Lymphocytes # (A) 2.6 k/uL (1.0-4.8); Lymphocytes % (A) 15 %; MCH 31.3 pg (25.0-35.0); MCHC 32.5 g/dL (31.0-37.0); MCV 96.3 fL (80.0-100.0); Monocytes # (A) 1.2 k/uL (0-1.0); Monocytes % (A) 7 %; Neutrophils # (A) 13.2 k/uL (1.3-7.7); Neutrophils % (A) 76 %; Platelet Count 251 k/uL (150-450); RBC 4.64 m/uL (4.30-5.90); RDW 12.7 % (11.5-15.5); WBC 17.5 k/uL (3.8-10.6)
[2023-08-06 07:55] VITALS: BP 106/70; PULSE 91; RESP 16; TEMP 98.3
[2023-08-06] MEDS: GABAPENTIN 300 MG CAP PO SCH (08:16)
[2023-08-06] MEDS: HEPARIN SODIUM,PORCINE 5,000 UNIT/ML 1 ML VIAL SQ SCH (08:16)
[2023-08-06] MEDS: NICOTINE 21MG/24HR PATCH TRANSDERM SCH (08:16)
[2023-08-06] MEDS: LACTATED RINGERS 1,000 ML IV SCH (08:21)
[2023-08-06] MEDS ORDERED: FLUTICASONE 50MCG/SPRAY NASAL 16GM EA NOSTRIL SCH (09:00)
[2023-08-06] MEDS ORDERED: buPROPion SR 150 MG TABLET.ER PO SCH (09:00)
--- NOTE | 2023-08-06 11:18 | P.PN ---
Progress Note - Text Progress Note Date: 08/06/23 Diagnosis: Low back pain; lower extremity pain Subjective: Patient seen at bedside this morning lying in semirecumbent position sitting up in chair. Patient says he is hoping to go home today. Patient was going home go home yesterday, however his pain was a little bit too intense. Patient says he does have his at home to help now. Patient says he is looking forward to beginning therapy as well. Patient denies any changes at this time. Plan: Discharge home today with health services.
--- NOTE | 2023-08-06 11:23 | P.DS ---
Providers Date of admission: 08/05/23 07:36 Expected date of discharge: 08/06/23 Attending physician: Emiliano Wray DO Consults: 08/04/23 15:42 Consult Physician Routine Consulting Provider: Lilli Burr Consult Reason/Comments: medical management s/p L5-S1 MIS TLIF Do you want consulting provider notified?: Yes Primary care physician: Kailash Reyes Hospital Course: Date of admission: 08/04/2023 Date of discharge: 08/06/2023 Admission diagnosis: Lower extremity weakness; low back pain Discharge diagnosis: Same Attending physician: Dr. Wray Surgical procedures: L5-S1 posterolateral interbody fusion Brief history: Patient is a 43-year-old male with a history of lower extremity weakness and low back pain. At this point patient has failed conservative treatment measures and has opted to proceed with a elective l5S1 posterior lateral interbody fusion. Hospital course: Details of patient's surgery can be found in operative report. Patient tolerated the procedure well and was subsequently transported to orthopedic floor. Patient's orthopeidc and medical care was provided daily. Patient had daily laboratory tests performed for evaluation of overall blood counts. Patient had daily physical therapy to include strengthening range of motion as well as education with walker ambulation. Patient was noted to have a relatively uneventful postoperative course. Patient reported satisfactory pain control with oral pain medications by postoperative day 2. Patient showed satisfactory progress with physical therapy. Patient moved steadily through the program and had no difficulty meeting the goals by postoperative day 2. Given patient's otherwise satisfactory course and having met physical therapy goals, p michelle is to discharge patient home on postoperative day 2. Discharge condition/disposition: Patient will be discharged home in stable condition. Discharge medications: Instructions are given on resumption of patient's normal daily medications per primary care recommendation, in addition patient will be prescribed Flexeril; [employer]; Duricef; senna. Spine Discharge and Recovery Instructions Date of Surgery: 08/04/2023 Diagnosis: Lower extremity weakness; low back pain Procedure: L5-S1 posteriolateral interbody fusion Medications: See medication list All medication refills should be obtained through your primary care doctor or your clinic spine surgeon. Please discuss prescription refills at your follow up appointment. Do not call the hospital for medication refills. Dressing: Leave your dressing in place for a total of 5 days post operatively. Then you may remove your dressing and leave open to air. Keep the area clean and if not able to keep area clean, then cover with sterile gauze and tape. Showering: You may shower 3 days after your procedure allowing soap and water to run over incision. Do not scrub. Do not soak. Blot dry. Follow up: Please confirm a follow up appointment with your surgeon 3 weeks post operatively. Please make an appointment to follow up with your PCP in 1-2 weeks after surgery for evaluation 3 phase, 3-week plan POST OP WEEKS 1-3 1. Lifting/carrying/pushing/pulling limited to less than 5 pounds. 2. Do not sit for longer than 15 minutes at one time. Get up and walk around. Prolonged sitting is NOT advised. If you lay down, see if you can tolerate laying down on you front (belly side) 3. Walk for periods of 15 minutes = 1 mile but no longer; do it multiple times times each day. 4. Ice your low back after activity. POST OP WEEKS 3-6 1. Lifting limited to less than 20 pounds. 2. Do not sit for longer than 30 minutes at a time. Frequently change positions. Use a sit-to stand workstation or take frequent breaks from sitting if you have returned to work. 3. Walk for 30 minutes each day. If possible, do these three or more times a day POST OP WEEKS 6+ At your 6-week appointment we will give you a physical therapy referral to focus on a core stabilization and strengthening program. You should also work on leg & buttock strengthening, hamstring & quadriceps stretching, and continue a low impact aerobic activity program such as swimming, walking, or riding a stationary bicycle. During the initial 6 weeks after your surgery, you are at the highest risk of re-injuring your spine. You should generally avoid BLTs (bending, lifting and twisting combination motions) and follow the above guidelines to reduce the chance of reinjury. You can anticipate post op appointments in our office at approximately 3 weeks and 6 weeks after your surgery. INCISION CARE: If your incision is not draining you do NOT need to cover it with a dressing. Keep your incision clean, dry and intact. In most cases, we apply skin glue, quinten or sutures to the incision at the time of surgery. This will be like a crust or have the appearance of a scab and will fall off in time on its own. The stitches or quinten need to be removed at 3 weeks post op appointment. You may begin to shower 3 days after surgery (this allows the glue to aparicio well). However, please avoid scrubbing the incision site or peeling off any of the skin glue. This will ensure optimal healing of your incision. Also, during this time avoid soaking the incision area in water - this includes swimming pools, hot tubs or baths. No ointments, lotions or oils on the incision until your surgeon allows. Leave quinten, sutures or glue in place. Neurological dysfunction that comes on suddenly can also be a sign of a stroke. Below some common symptoms of a stroke are listed: B - balance difficulty such as sudden onset walking or leaning to one side - NEW E - eye problem such as sudden double vision or trouble seeing on one side - NEW F - Facial weakness or numbness on one side - NEW A - Arm or leg weakness or numbness on one side - NEW S - Slurred speech or difficulty with word finding - NEW T - Time is BRAIN! Call 911 as soon as you recognize these symptoms Diet: Consume a regular diet rich in vegetables and lean protein such as chicken or fish. You should consume in a ratio of approximately 20% fats|40% carbohydrates|40%protein. Vegetables, sweet potatoes, brown rice or quinoa are examples of good carbohydrates. Chips, white bread, cookies and sweets/sugar are examples of bad carbohydrates. Limit your bad carbs, go wild with good carbs. "Life's Simple 7" Guidelines as per [place] [employer] These will help you reclaim your life after surgery and termite helper in your recovery, keeping in mind your restrictions. (1) Get Active. Physical activity can help people lose weight, control high blood pressure and cholesterol, feel emotionally better, and sleep better. (2) Control Cholesterol. Avoid a diet high in saturated fat, trans fat, & cholesterol. Limit whole milk & cream, ice cream, butter, egg yolks, processed meats (like sausage and hot dogs), and fatty meats. Choose healthy foods that are low in saturated fat, trans fat and cholesterol which include: Fruits and vegetables, fiber rich grain products (like whole grain pasta and brown rice), lean meat such as chicken, fish, nuts, seeds, and legumes. (3) Eat Better. Eat small portions. Shop at the grocery with a list and do not stray from it. Tips for a healthy diet include: Limit sodium intake to less than 1500mg daily, avoid prepackaged, processed, and fast foods, choose a diet rich in fruits, vegetables, and whole grain, high fiber foods, and limit saturated & cholesterol in your diet. (4) Manage Blood Pressure. If you have high blood pressure, you should have a cuff at home so that you can check your blood pressure regularly. Be sure you have a good cuff. An arm one is generally better than a wrist one. Bring the cuff to a doctor's appointment to validate that the measurements that your cuff are taking are accurate. Take your blood pressure twice daily when you are sitting down and relaxing. Record the numbers in a log and bring this log with you to your doctors' appointments. (5) Lose Weight if your BMI is above 25. A healthy BMI is between 19-25. To calculate Your BMI, you may use a Standard BMI Calculator on the NIH BMI website: <www.nhlbi.nih.gov/guidelines/obesity/BMI/bmicalc.htm>. Weigh oneself daily. If you are overweight, set a goal to lose weight. A pound a week loss if needed is a good target. (6) Reduce Blood Sugar. Limit foods and liquids with "added sugars." (Added sugars include sucrose, fructose, glucose, maltose, dextrose, high fructose corn syrup, corn syrup, concentrated fruit juice and honey). (7) Stop Smoking. If you smoke, quitting smoking is one of the best things that you can do for your health. Smoking increases your risk of heart attack, stroke, and peripheral vascular disease, which is a build-up of plaque in your arteries. Please discard all the cigarettes and lighters in your house. Have a plan for what you will do when you have the urge to smoke. Direct and second- hand smoke shortens your life as well as the lives of your family, friends and others around you. For your health and the health of those around you, please consider quitting! Proper Bending Body Mechanics: Maintain a wide stance with one foot slightly in front of the other. Keep your back straight. Bend utilizing the strength in your hips and knees. Do not bend at the waist. Maintain the lifted object at your waist-level close to your body. Avoid lifting weight that causes immediately pain or pain anywhere in the body afterwards. Smoking/Nicotine If there was ever one thing that you could do to increase your overall health, decrease your risk of cardiovascular problems by about 39% the second you make the choice, it is to STOP SMOKING. Your body's most instant gratification is the second you stop smoking. We have all heard the studies, read the articles but it is true, smoking is extremely bad for your overall health, and moreover it is detrimental to your bone health. Nicotine, IN ANY FORM, kills bone cells, prevents your body from healing fractures, and significantly prolongs healing after surgery. In spine surgery specifically, it increases your risk of not healing your bones to create a fusion and increases your risk of having a revision surgery due to this up to 6 0%. I know it is hard. I know it feels impossible. But there are ways. Take control of your life. We are here to help you through it. And when you are ready, ask us and we can direct you to help if you desire. Use the START Plan to Quit Smoking (please visit the Helpguide.org website listed below for more information): S = Set a quit date. Choose a date within the next 2 weeks, so you have enough time to prepare without losing your motivation to quit. If you mainly smoke at work, quit on the weekend, so you have a few days to adjust to the change. T = Tell family, friends, and co-workers that you plan to quit. Let your friends and family in on your plan to quit smoking and tell them you need their support and encouragement to stop. Look for a quit ankur who wants to stop smoking as well. You can help each other get through the rough times. A = Anticipate and plan for the challenges you'll face while quitting. Most people who begin smoking again do so within the first 3 months. You can help yourself make it through by preparing ahead for common challenges, such as nicotine withdrawal and cigarette cravings. R = Remove cigarettes and other tobacco products from your home, car, and work. Throw away all your cigarettes (no emergency pack!), lighters, ashtrays, and matches. Wash your clothes and freshen up anything that smells like smoke. Shampoo your car, clean your drapes and carpet, and steam your furniture. T = Talk to your doctor about getting help to quit. Your doctor can prescribe medication to help with withdrawal and suggest other alternatives. If you can't see a doctor, you can get many products over the counter at your local pharmacy or grocery store, including the nicotine patch, nicotine lozenges, and nicotine gum. Resources for Quitting Smoking: <https://www.[place].gov/documents/[facility]/Quit_Tobacco_Resources_for_patients_313 480_7.pdf> Supplementation: Take recommended dosages of Vitamin D and Calcium to help fortify your bones and help them to heal. See your health maintenance packet for dosages and recommended levels. DVT/VTE prophylaxis: You will be given compression stockings from the hospital. Wear these daily for the first two weeks after surgery. You may take them off at night. You may be prescribed a medication to help thin your blood. Take this as directed. If you are not prescribed this medication, early and frequent ambulation has been shown to be the best prophylaxis to deep vein thrombosis and sequelae related to this event. Assessment: Low back pain; lower extremity weakness Procedures: L5-S1 posterior lateral interbody fusion Patient Condition at Discharge: Good Plan - Discharge Summary Discharge Rx Participant: Yes New Discharge Prescriptions: New Cyclobenzaprine [Flexeril] 5 mg PO TID PRN #60 tablet PRN Reason: Muscle Spasm HYDROcodone/APAP 10-325MG [[employer] 10-325] 1 tab PO Q4-6H PRN #42 tab PRN Reason: Pain cefaDROXiL [Duricef] 500 mg PO Q12HR #10 cap Sennosides/Docusate Sodium [Senna Plus 8.6-50 mg Tablet] 1 each PO DAILY PRN #20 tablet PRN Reason: Constipation Continue buPROPion HCL [Wellbutrin SR] 300 mg PO DAILY Fluticasone Nasal [place] [Flonase Nasal [place]] 2 puff EA NOSTRIL DAILY Zyrtec 1 dose PO DAILY PRN PRN Reason: Allergy Symptoms Doxylamine Succinate [Unisom] 25 mg PO HS PRN PRN Reason: Insomnia No Action tiZANidine HCL [Zanaflex] 4 mg PO TID PRN PRN Reason: Muscle Spasm Gabapentin [Neurontin] 300 mg PO TID Celecoxib [CeleBREX] 200 mg PO DAILY Discharge Medication List Fluticasone Nasal [place] [Flonase Nasal [place]] 2 puff EA NOSTRIL DAILY 08/23/22 [History] buPROPion HCL [Wellbutrin SR] 300 mg PO DAILY 08/23/22 [History] Doxylamine Succinate [Unisom] 25 mg PO HS PRN 09/20/22 [History] Zyrtec 1 dose PO DAILY PRN 09/20/22 [History] tiZANidine HCL [Zanaflex] 4 mg PO TID PRN 09/20/22 [History] Celecoxib [CeleBREX] 200 mg PO DAILY 03/30/23 [History] Gabapentin [Neurontin] 300 mg PO TID 03/30/23 [History] Cyclobenzaprine [Flexeril] 5 mg PO TID PRN #60 tablet 08/05/23 [Rx] HYDROcodone/APAP 10-325MG [[employer] 10-325] 1 tab PO Q4-6H PRN #42 tab 08/05/23 [Rx] Sennosides/Docusate Sodium [Senna Plus 8.6-50 mg Tablet] 1 each PO DAILY PRN #20 tablet 08/05/23 [Rx] cefaDROXiL [Duricef] 500 mg PO Q12HR #10 cap 08/05/23 [Rx] Follow up Appointment(s)/Referral(s): [facility] [REFERRING] - As Needed (Call to inquire about disability pay. ) Kailash Reyes MD [Primary Care Provider] - 1 Week Emiliano Wray DO [Doctor of Osteopathic Medicine] - 2 Weeks Activity/Diet/Wound Care/Special Instructions: Spine Discharge and Recovery Instructions Date of Surgery: 08/04/2023 Diagnosis: L5 pars defect with spondylolisthesis Procedure: L5-S1 VT TLIF Medications: See medication list All medication refills should be obtained through your primary care doctor or your clinic spine surgeon. Please discuss prescription refills at your follow up appointment. Do not call the hospital for medication refills. Dressing: Leave your dressing in place for a total of 5 days post operatively. Then you may remove your dressing and leave open to air. Keep the area clean and if not able to keep area clean, then cover with sterile gauze and tape. Showering: You may shower 3 days after your procedure allowing soap and water to run over incision. Do not scrub. Do not soak. Blot dry. Follow up: Please confirm a follow up appointment with your surgeon 3 weeks post operatively. Please make an appointment to follow up with your PCP in 1-2 weeks after surgery for evaluation 3 phase, 3-week plan POST OP WEEKS 1-3 1. Lifting/carrying/pushing/pulling limited to less than 5 pounds. 2. Do not sit for longer than 15 minutes at one time. Get up and walk around. Prolonged sitting is NOT advised. If you lay down, see if you can tolerate laying down on you front (belly side) 3. Walk for periods of 15 minutes = 1 mile but no longer; do it multiple times times each day. 4. Ice your low back after activity. POST OP WEEKS 3-6 1. Lifting limited to less than 20 pounds. 2. Do not sit for longer than 30 minutes at a time. Frequently change positions. Use a sit-to stand workstation or take frequent breaks from sitting if you have returned to work. 3. Walk for 30 minutes each day. If possible, do these three or more times a day POST OP WEEKS 6+ At your 6-week appointment we will give you a physical therapy referral to focus on a core stabilization and strengthening program. You should also work on leg & buttock strengthening, hamstring & quadriceps stretching, and continue a low impact aerobic activity program such as swimming, walking, or riding a stationary bicycle. During the initial 6 weeks after your surgery, you are at the highest risk of re-injuring your spine. You should generally avoid BLTs (bending, lifting and twisting combination motions) and follow the above guidelines to reduce the chance of reinjury. You can anticipate post op appointments in our office at approximately 3 weeks and 6 weeks after your surgery. INCISION CARE: If your incision is not draining you do NOT need to cover it with a dressing. Keep your incision clean, dry and intact. In most cases, we apply skin glue, quinten or sutures to the incision at the time of surgery. This will be like a crust or have the appearance of a scab and will fall off in time on its own. The stitches or quinten need to be removed at 3 weeks post op appointment. You may begin to shower 3 days after surgery (this allows the glue to aparicio well). However, please avoid scrubbing the incision site or peeling off any of the skin glue. This will ensure optimal healing of your incision. Also, during this time avoid soaking the incision area in water - this includes swimming pools, hot tubs or baths. No ointments, lotions or oils on the incision until your surgeon allows. Leave quinten, sutures or glue in place. Neurological dysfunction that comes on suddenly can also be a sign of a stroke. Below some common symptoms of a stroke are listed: B - balance difficulty such as sudden onset walking or leaning to one side - NEW E - eye problem such as sudden double vision or trouble seeing on one side - NEW F - Facial weakness or numbness on one side - NEW A - Arm or leg weakness or numbness on one side - NEW S - Slurred speech or difficulty with word finding - NEW T - Time is BRAIN! Call 911 as soon as you recognize these symptoms Diet: Consume a regular diet rich in vegetables and lean protein such as chicken or fish. You should consume in a ratio of approximately 20% fats|40% carbohydrates|40%protein. Vegetables, sweet potatoes, brown rice or quinoa are examples of good carbohydrates. Chips, white bread, cookies and sweets/sugar are examples of bad carbohydrates. Limit your bad carbs, go wild with good carbs. "Life's Simple 7" Guidelines as per [place] [employer] These will help you reclaim your life after surgery and termite helper in your recovery, keeping in mind your restrictions. (1) Get Active. Physical activity can help people lose weight, control high blood pressure and cholesterol, feel emotionally better, and sleep better. (2) Control Cholesterol. Avoid a diet high in saturated fat, trans fat, & cholesterol. Limit whole milk & cream, ice cream, butter, egg yolks, processed meats (like sausage and hot dogs), and fatty meats. Choose healthy foods that are low in saturated fat, trans fat and cholesterol which include: Fruits and vegetables, fiber rich grain products (like whole grain pasta and brown rice), lean meat such as chicken, fish, nuts, seeds, and legumes. (3) Eat Better. Eat small portions. Shop at the grocery with a list and do not stray from it. Tips for a healthy diet include: Limit sodium intake to less than 1500mg daily, avoid prepackaged, processed, and fast foods, choose a diet rich in fruits, vegetables, and whole grain, high fiber foods, and limit saturated & cholesterol in your diet. (4) Manage Blood Pressure. If you have high blood pressure, you should have a cuff at home so that you can check your blood pressure regularly. Be sure you have a good cuff. An arm one is generally better than a wrist one. Bring the cuff to a doctor's appointment to validate that the measurements that your cuff are taking are accurate. Take your blood pressure twice daily when you are sitting down and relaxing. Record the numbers in a log and bring this log with you to your doctors' appointments. (5) Lose Weight if your BMI is above 25. A healthy BMI is between 19-25. To calculate Your BMI, you may use a Standard BMI Calculator on the NIH BMI website: <www.nhlbi.nih.gov/guidelines/obesity/BMI/bmicalc.htm>. Weigh oneself daily. If you are overweight, set a goal to lose weight. A pound a week loss if needed is a good target. (6) Reduce Blood Sugar. Limit foods and liquids with "added sugars." (Added sugars include sucrose, fructose, glucose, maltose, dextrose, high fructose corn syrup, corn syrup, concentrated fruit juice and honey). (7) Stop Smoking. If you smoke, quitting smoking is one of the best things that you can do for your health. Smoking increases your risk of heart attack, stroke, and peripheral vascular disease, which is a build-up of plaque in your arteries. Please discard all the cigarettes and lighters in your house. Have a plan for what you will do when you have the urge to smoke. Direct and second- hand smoke shortens your life as well as the lives of your family, friends and others around you. For your health and the health of those around you, please consider quitting! Proper Bending Body Mechanics: Maintain a wide stance with one foot slightly in front of the other. Keep your back straight. Bend utilizing the strength in your hips and knees. Do not bend at the waist. Maintain the lifted object at your waist-level close to your body. Avoid lifting weight that causes immediately pain or pain anywhere in the body afterwards. Smoking/Nicotine If there was ever one thing that you could do to increase your overall health, decrease your risk of cardiovascular problems by about 39% the second you make the choice, it is to STOP SMOKING. Your body's most instant gratification is the second you stop smoking. We have all heard the studies, read the articles but it is true, smoking is extremely bad for your overall health, and moreover it is detrimental to your bone health. Nicotine, IN ANY FORM, kills bone cells, prevents your body from healing fractures, and significantly prolongs healing after surgery. In spine surgery specifically, it increases your risk of not healing your bones to create a fusion and increases your risk of having a revision surgery due to this up to 60%. I know it is hard. I know it feels impossible. But there are ways. Take control of your life. We are here to help you through it. And when you are ready, ask us and we can direct you to help if you desire. Use the START Plan to Quit Smoking (please visit the Helpguide.org website listed below for more information): S = Set a quit date. Choose a date within the next 2 weeks, so you have enough time to prepare without losing your motivation to quit. If you mainly smoke at work, quit on the weekend, so you have a few days to adjust to the change. T = Tell family, friends, and co-workers that you plan to quit. Let your friends and family in on your plan to quit smoking and tell them you need their support and encouragement to stop. Look for a quit ankur who wants to stop smoking as well. You can help each other get through the rough times. A = Anticipate and plan for the challenges you'll face while quitting. Most people who begin smoking again do so within the first 3 months. You can he lp yourself make it through by preparing ahead for common challenges, such as nicotine withdrawal and cigarette cravings. R = Remove cigarettes and other tobacco products from your home, car, and work. Throw away all your cigarettes (no emergency pack!), lighters, ashtrays, and matches. Wash your clothes and freshen up anything that smells like smoke. Shampoo your car, clean your drapes and carpet, and steam your furniture. T = Talk to your doctor about getting help to quit. Your doctor can prescribe medication to help with withdrawal and suggest other alternatives. If you can't see a doctor, you can get many products over the counter at your local pharmacy or grocery store, including the nicotine patch, nicotine lozenges, and nicotine gum. Resources for Quitting Smoking: <https://www.[place].gov/documents/[facility]/Quit_Tobacco_Resources_for_patients_313 480_7.pdf> Supplementation: Take recommended dosages of Vitamin D and Calcium to help fortify your bones and help them to heal. See your health maintenance packet for dosages and recommended levels. DVT/VTE prophylaxis: You will be given compression stockings from the hospital. Wear these daily for the first two weeks after surgery. You may take them off at night. You may be prescribed a medication to help thin your blood. Take this as directed. If you are not prescribed this medication, early and frequent ambulation has been shown to be the best prophylaxis to deep vein thrombosis and sequelae related to this event. Discharge Disposition: HOME WITH HOME HEALTH SERVICES
--- NOTE | 2023-08-06 11:37 | P.PN ---
Subjective Progress Note Date: 08/06/23 Subjective: Seen and examined at bedside. No acute events overnight. Pain better. Pertinent positives and negatives as discussed above, a complete review of systems was performed and all other systems are negative. Vitals Signs Reviewed. General: nontoxic, no distress, appears at stated age Derm: warm, dry, back dressing nonobserved Head: atraumatic, normocephalic, symmetric Eyes: EOMI, no lid lag, anicteric sclera Mouth: no lip lesion, mucus membranes moist Cardiovascular: S1S2 reg, no murmur Lungs: CTA bilateral, no rhonchi, no rales , no accessory muscle use Abdominal: soft, nontender to palpation, no guarding, no appreciable organomegaly Ext: no gross muscle atrophy, no edema, no contractures Neuro: CN II-XI grossly intact, no focal neuro deficits Psych: Alert, oriented, appropriate affect Data Reviewed Today: Pertinent Labs: WBC 17.5 Imaging: No new imaging Assessment and Plan: Status post lumbosacral surgery COPD Nicotine dependence Leukocytosis, chronic in nature, also reactive and the setting of surgery -May benefit from outpatient hematology evaluation for leukocytosis -Rest of the home medications reviewed -Reconciliation done for discharge home Patient is medically optimized for discharge home Thank you for allowing us to participate in the care of this pleasant patient. Do not hesitate to contact us with questions. Someone can be reached from the [facility] hospitalist group all hours of the day at [phone] or via [employer]. Objective - Vital Signs Vital signs: Vital Signs Temp 98.3 F 08/06/23 07:14 Pulse 91 08/06/23 07:14 Resp 16 08/06/23 07:14 BP 106/70 08/06/23 07:14 Pulse Ox 92 L 08/06/23 07:14 FiO2 Intake & Output 08/05/23 08/06/23 08/06/23 18:59 06:59 18:59 Other: Voiding Method Toilet Urinal # Voids 3 2 # Bowel Movements 0 - Labs CBC & Chem 7: 08/06/23 05:23 08/05/23 05:33 Labs: Abnormal Lab Results - Last 24 Hours (Table) 08/06/23 Range/Units 05:23 WBC 17.5 H (3.8-10.6) k/uL Neutrophils # 13.2 H (1.3-7.7) k/uL Monocytes # 1.2 H (0-1.0) k/uL
== END 2023-08-06 12:57 | disposition home health service (06) ==
LOC: OR 10:59 → 4SSUR 15:46 → OR 08-05 07:36
PROVIDERS: ADMIT Orthopaedic Surgery; ATTEND Orthopaedic Surgery
DX: M48.07 Spinal stenosis, lumbosacral region (principal); M47.27 Other spondylosis with radiculopathy, lumbosacral region; M43.17 Spondylolisthesis, lumbosacral region; M51.16 Intervertebral disc disorders with radiculopathy, lumbar region; J44.9 Chronic obstructive pulmonary disease, unspecified; Q07.00 Arnold-Chiari syndrome without spina bifida or hydrocephalus; F32.A Depression, unspecified; F41.9 Anxiety disorder, unspecified; L30.9 Dermatitis, unspecified; F17.210 Nicotine dependence, cigarettes, uncomplicated; Z79.1 Long term (current) use of non-steroidal anti-inflammatories (NSAID); Z79.899 Other long term (current) drug therapy; Z88.8 Allergy status to other drugs, medicaments and biological substances; Z90.49 Acquired absence of other specified parts of digestive tract; Z87.442 Personal history of urinary calculi; Z98.890 Other specified postprocedural states; Z80.51 Family history of malignant neoplasm of kidney; Z82.5 Family history of asthma and other chronic lower respiratory diseases; Z82.49 Family history of ischemic heart disease and other diseases of the circulatory system
CPT/HCPCS: 22633; 63052; 22853; 61783; 20931; 20936; 96372 ×2; 97116; 97161; 86900; 86901; 80053; 80048; 85025 ×3; 85610; 86850; 72100; 72131; G0378 ×2; C1713; C1734; S4990 ×3; J2250; J0330; J1644 ×2; S0106; J0690 ×2; J2405; J3010; J1170 ×3; J2704; J2001; J0665

== ENCOUNTER → 2024-05-03 | Outpatient (CLI) | payer BC ==
--- NOTE | 2024-05-03 20:42 | MR ---
EXAMINATION TYPE: MR shoulder LT wo con DATE OF EXAM: 05/03/2024 COMPARISON: None. HISTORY: Left shoulder pain and weakness, difficult to raise arm TECHNIQUE: Multiplanar, multisequence imaging of the left shoulder is performed without contrast. FINDINGS: Rotator Cuff: Some increased signal in the supraspinatus tendon with adjacent fluid. Intact infraspin atus tendon. Intact subscapularis Tendon. Rotator cuff muscle bulk preserved. Acromioclavicular Joint: Mild to moderate narrowing and capsular hypertrophy. Mild spurring. Loss of underlying fat plane sagittal image 12 for reference. Glenohumeral Joint: No significant spurring or effusion. Labrum: Abnormal signal superior labrum seen best on coronal images. Biceps Tendon: The long head of biceps is in normal location within bicipital groove. Bone marrow signal: No focal abnormal marrow signal is appreciated. Other: No additional significant abnormality is appreciated. IMPRESSION: 1. Superior labral tear. 2. Tendinosis of the supraspinatus tendon. 3. [id number] AC joint arthropathy with suggestion of underlying impingement, correlate clinica lly.
== END | disposition home or self-care (01) ==
LOC: RADMRIMAIN 15:47
PROVIDERS: ATTEND Orthopaedic Surgery
DX: M67.814 Other specified disorders of tendon, left shoulder (principal); M25.812 Other specified joint disorders, left shoulder; M19.012 Primary osteoarthritis, left shoulder; S43.432A Superior glenoid labrum lesion of left shoulder, initial encounter

== ENCOUNTER → 2024-08-10 | Outpatient (CLI) | payer OTHER ==
--- NOTE | 2024-08-14 10:23 | MR ---
EXAMINATION TYPE: MR cervical spine wo con DATE OF EXAM: 08/10/2024 2:26 PM COMPARISON: NONE HISTORY: Neck and upper back pain, headaches, LUE radiculopathy. Multiplanar MultiSpin echo imaging of the cervical spine was performed. Comparison: none C2-C3: No evidence for degenerative disc disease. No disc bulge/herniation or protrusion. No Canal stenosis. Foramina are patent bilaterally. C3-C4: No evidence for degenerative disc disease. No disc bulge/herniation or protrusion. No Canal stenosis. Foramina are patent bilaterally. C4-C5: Mild disc desiccation minimal posterior disc bulge. Mild effacement ventral thecal sac without evidence for herniation or central stenosis. No Canal stenosis. Foramina are patent bilaterally. C5-C6: No evidence for degenerative disc disease. No disc bulge/herniation or protrusion. No Canal stenosis. Foramina are patent bilaterally. C6-C7: Mild disc desiccation minimal posterior disc bulge. Mild effacement ventral thecal sac without evidence for herniation or central stenosis. No Canal stenosis. Foramina are patent bilaterally. C7-T1: No evidence for degenerative disc disease. No disc bulge/herniation or protrusion. No Canal stenosis. Foramina are patent bilaterally. Cervical segments are intact. There is normal alignment. Cervical spinal cord is of normal signal. Craniovertebral junction relationships are within normal limits. IMPRESSION: 1. Mild disc desiccation and disc bulging as noted. [facility], , 08/14/2024 10:20 AM
== END | disposition home or self-care (01) ==
LOC: RADMRIMAIN 12:49
PROVIDERS: ATTEND Orthopaedic Surgery
DX: M50.10 Cervical disc disorder with radiculopathy, unspecified cervical region (principal)
CPT/HCPCS: 72141